=== PATIENT | male | born 1975 | race Caucasian/White ===

== ENCOUNTER 2016-11-08 00:34 | Emergency (ER) | payer OTHER ==
[~2016-11-08] VITALS: Ht 188 cm; Wt 122.5 kg
[~2016-11-08 00:34] MED LIST: BLM PO; IBU800 MG PO; LEVOTHYROXIN0.075 M1 PO; RISPERDAL CONST25 MG IM; RISPERIDONE4 MG PO
--- NOTE | 2016-11-08 01:09 | ED GI/GU/ABDOMINAL COMPLAINT ---
History of Present Illness General Chief Complaint: Nausea, Vomiting, Diarrhea Stated Complaint: +VOM,SLEEPY PER PT Source: patient Exam Limitations: no limitations Vital Signs & Intake/Output Vital Signs & Intake/Output Vital Signs Date Time Temp Pulse Resp B/P Pulse O2 O2 Flow FiO2 Ox Delivery Rate 11/08 0256 97.6 81 20 112/68 96 Room Air 11/08 0134 Room Air 11/08 0106 96.9 103 18 144/89 95 Room Air Allergies Coded Allergies: Penicillins (Intermediate, RASH 11/16/15) Reconcile Medications Atorvastatin Calcium 20 MG TABLET 1 TAB PO DAILY CHOLESTEROL (Reported) Gabapentin 300 MG CAPSULE 1 CAP PO DAILY NERVE PAIN (Reported) Levothyroxine Sodium 100 MCG TABLET 1 TAB PO DAILY HASHIMOTOS (Reported) Lorazepam 0.5 MG TABLET 1 TAB PO BID PRN ANXIETY (Reported) Metformin HCl 1,000 MG TABLET 1 TAB PO QAM PRE-DM (Reported) Ondansetron (Zofran Odt) 4 MG TAB.RAPDIS 1 TAB PO Q6 PRN NAUSEA Risperidone Microspheres (Risperdal Consta) 25 MG/2 ML SYRINGE 25 MG IM Q2W MENTAL HEALTH (Reported) Turmeric Root Extract (Turmeric) (Unknown Strength) CAPSULE 3 CAP PO PRN SUPPLEMENT (Reported) Triage Note: PT TO TRIAGE C/O VOMITING MULTIPLE TIMES X2DAYS. PT STATES HE LAST VOMITED YESTERDAY MORNING. ATE PIZZA AROUND 5:30 LAST NIGHT AND IT HAS STAYED DOWN. PT COMPLAINING OF NAUSEA AND INTERMITTENT R ABD PAIN. PT ALSO C/O DROWSINESS. Triage Nurses Notes Reviewed? yes Onset: Abrupt Duration: hour(s): (MULTIPLE), SINCE 4 PM Timing: multiple episodes today Quality/Severity: moderate Location: right upper quadrant Radiation: no radiation No Modifying Factors: none Associated Symptoms: nausea/vomiting HPI: 41 year-old male presents to the chief complaint of nausea, right upper quadrant pain, feeling dehydrated and sleepy. He states he started vomiting last night around 4 AM. Since then he has vomited multiple times. This evening around 5: 00 he tried eat pizza and Edematous feel nauseous. Denies any bloody emesis. Denies any fever or chills. He had 2 bowel movements today. Denies any recent sick contacts. History of previous alcoholism but has not had a drink in over 60 days. Denies any drug or tobacco use. Past History Travel History Traveled to [place] past 21 day No Medical History Any Pertinent Medical History? see below for history Neurological: NONE, L LEG NERVE DAMAGE EENT: NONE Cardiovascular: NONE Respiratory: NONE Gastrointestinal: NONE Hepatic: NONE Renal: NONE Musculoskeletal: NONE Psychiatric: anxiety, schizophrenia ( Per patient questioning) Endocrine: diabetes, Preston's thyroiditis Surgical History Surgical History: non-contributory Psychosocial History What is your primary language Kittitian Tobacco Use: Never used ETOH Use: denies use Family History Hx Contributory? No Review of Systems Review of Systems Constitutional: Denies: chills, fever. EENTM: Reports: no symptoms. Respiratory: Denies: cough, short of breath. Cardiovascular: Denies: chest pain, palpitations. GI: Reports: abdominal pain, nausea, vomiting. Denies: diarrhea. Genitourinary: Denies: discharge, dysuria. Musculoskeletal: Reports: no symptoms. Skin: Reports: no symptoms. Neurological/Psychological: Reports: no symptoms. Hematologic/Endocrine: Denies: bruising, bleeding, polyuria, polydipsia. Immunologic/Allergic: Denies: splenectomy. All Other Systems: Reviewed and Negative Physical Exam Physical Exam General Appearance: well developed/nourished, alert, awake, anxious, mild distress Head: atraumatic, active bleeding Eyes: Bilateral: normal appearance, PERRL, EOMI. Ears, Nose, Throat, Mouth: hearing grossly normal, moist mucous membrane Neck: normal inspection, supple, full range of motion Respiratory: normal breath sounds, chest non-tender, no respiratory distress Cardiovascular: regular rate/rhythm Peripheral Pulses: 2+ radial (R), 2+ radial (L) Gastrointestinal: normal bowel sounds, soft, tenderness (RUQ), NEGATIVE NASH'S , OBESE Back: normal inspection, normal range of motion Extremities: normal range of motion Neurologic/Psych: no motor/sensory deficits, awake, alert, oriented x 3, normal gait, ANXIOUS Skin: intact, normal color, warm/dry Core Measures ACS in differential dx? No Severe Sepsis Present: No Septic Shock Present: No Progress Differential Diagnosis: biliary colic, cholecystitis, gastritis, hepatitis, hernia, peptic ulcer, PUD/GERD, perforated viscous, SBO Plan of Care: Orders Procedure Date/time Status URINALYSIS 11/09 111 Complete LIPASE 11/09 111 Complete LACTIC ACID 11/09 111 Complete COMPREHENSIVE METABOLIC PANEL 11/09 111 Complete CBC WITHOUT DIFFERENTIAL 11/09 111 Complete Laboratory Tests 11/08/16 0130: Urinalysis MOD H, Urine Color YEL, Urine Clarity HAZY H, Urine pH 8.0, Ur Specific [place] 1.015, Urine Protein 30 H, Urine Ketones NEG, Urine Nitrite NEG, Urine Bilirubin NEG, Urine Urobilinogen 2.0 H, Ur Leukocyte Esterase NEG, Ur Microscopic SEDIMENT EXAMINED, Ur Epithelial Cells FEW, Urine Hemoglobin NEG, Urine Glucose NEG 11/08/16 0121: Anion Gap 9, Estimated GFR > 60, BUN/Creatinine Ratio 17.5, Glucose 164 H, Lactic Acid 0.9, Calcium 9.5, Total Bilirubin 1.3, AST 188 H, ALT 229 H, Alkaline Phosphatase 56, Total Protein 6.8, Albumin 4.1, Globulin 2.7, Albumin/ Globulin Ratio 1.5, Lipase 115, CBC w Diff NO MAN DIFF REQ, RBC 4.89, MCV 81.1, MCH 27.0, RDW 15.4 H, MPV 7.8, Gran % 74.6, Lymphocytes % 20.0 L, Monocytes % 4.0, Eosinophils % 1.1, Basophils % 0.3, Absolute Granulocytes 6.1, Absolute Lymphocytes 1.6, Absolute Monocytes 0.3, Absolute Eosinophils 0.1, Absolute Basophils 0, PUBS MCHC 33.3 3:31 AM Patient resting comfortably. Laboratory results discussed with patient for follow-up. I suspect fatty liver. Zofran sent to [facility] in [place]. (YVETTE ROSS,LIZ) Initial ED EKG: none Departure Departure Time of Disposition: 326 Disposition: HOME OR SELF CARE Condition: Stable Clinical Impression Primary Impression: Nausea alone Secondary Impressions: Elevated liver enzymes Referrals: SKYLER ROSS,PATT Pruitt (PCP/Family) Additional Instructions: Take Zofran as needed for nausea. Your prescription is at [facility] in [place]. Follow up with your doctor in the office regarding your elevated liver function tests. Return as needed. Departure Forms: Customer Survey General Discharge Information Prescriptions: Current Visit Scripts Ondansetron (Zofran Odt) 1 TAB PO Q6 PRN NAUSEA #20 TAB
[2016-11-08 01:27] LABS: ABSOLUTE BASOPHIL COUNT 0 /CUMM (0.0-0.2); ABSOLUTE EOSINOPHIL COUNT 0.1 /CUMM (0.0-0.7); ABSOLUTE GRANULOCYTE CT 6.1 /CUMM (1.4-6.5); ABSOLUTE LYMPH COUNT 1.6 /CUMM (1.2-3.4); ABSOLUTE MONOCYTE COUNT 0.3 /CUMM (0.10-0.60); BASOPHIL % 0.3 % (0.0-2.0); EOSINOPHIL % 1.1 % (0-5); GRANULOCYTE % 74.6 % (42.2-75.2); HEMATOCRIT 39.6 % (42-52); MEAN CORPUSCULAR HGB CONC 33.3 G/DL (33.0-37.0); MEAN CORPUSCULAR VOLUME 81.1 FL (80.0-94.0); MEAN PLATELET VOLUME 7.8 FL (7.4-10.4); PLATELET COUNT 240 /CUMM (130-400); RBC DISTRIBUTION WIDTH 15.4 % (11.5-14.5); RED BLOOD CELL CT 4.89 /CUMM (4.70-6.10); WHITE BLOOD CELL COUNT 8.2 /CUMM (4.8-10.8)
[2016-11-08 02:56] VITALS: BP 112/68
[2016-11-08] MEDS ORDERED: ZOFRAN ODT4 M1 PO (03:28)
[2016-11-08] MEDS ORDERED: LEVOTHYROXINE100 MC1 PO (18:30)
[2016-11-08] MEDS ORDERED: LORAZEPAM0.5 M1 PO (18:31)
[2016-11-08] MEDS ORDERED: METFORMIN HCL1000 M1 PO (18:31)
[2016-11-08] MEDS ORDERED: ATORVASTATIN CA20 M1 PO (18:31)
[2016-11-08] MEDS ORDERED: GABAPENTIN300 M2 PO (18:31)
[2016-11-08] MEDS ORDERED: PROAIR HFA8.5 GM INH (18:32)
[2016-11-08] MEDS ORDERED: RISPERDAL25 MG/2 ML IM (18:35)
[2016-11-08] MEDS ORDERED: TURMERIC500 M1 PO (18:36)
== END 2016-11-08 03:35 ==
LOC: ERH 00:34
PROVIDERS: Emergency Medicine
DX: R11.0 Nausea (principal); R74.8 Abnormal levels of other serum enzymes
CPT/HCPCS: 81001; 96361; 96374; J2405

== ENCOUNTER 2016-11-08 18:07 | Inpatient (IN) | payer OTHER ==
[~2016-11-08] VITALS: Ht 185.4 cm; Wt 144.7 kg
[~2016-11-08 18:07] MED LIST changes: +ZOFRAN ODT4 M1 PO
--- NOTE | 2016-11-08 18:12 | NUR ---
PRESENTS TO ED FOR EVALUATION OF NAUSEA DESPITE TAKING ZOFRAN. HE WAS EVALUATED HERE LAST NIGHT AND TOLD HIS LIVER ENZYMES WERE ELEVATED. HE VOMITED "BLACK STUFF" X 1 THIS AM AT 0515. ALSO REPORTS DECREASE IN APPETTITE.
--- NOTE | 2016-11-08 18:20 | NUR ---
APPRECIATE TRIAGE NOTE. PT AMBULATORY TO ROOM 7. AWAITING PROVIDER EVAL.
[2016-11-08] MEDS ORDERED: LEVOTHYROXINE100 MC1 PO (18:30)
[2016-11-08] MEDS ORDERED: METFORMIN HCL1000 M1 PO (18:31)
[2016-11-08] MEDS ORDERED: ATORVASTATIN CA20 M1 PO (18:31)
[2016-11-08] MEDS ORDERED: LORAZEPAM0.5 M1 PO (18:31)
[2016-11-08] MEDS ORDERED: GABAPENTIN300 M2 PO (18:31)
[2016-11-08] MEDS ORDERED: PROAIR HFA8.5 GM INH (18:32)
[2016-11-08] MEDS ORDERED: RISPERDAL25 MG/2 ML IM (18:35)
[2016-11-08] MEDS ORDERED: TURMERIC500 M1 PO (18:36)
--- NOTE | 2016-11-08 18:42 | ED GI/GU/ABDOMINAL COMPLAINT ---
History of Present Illness General Chief Complaint: General Adult Stated Complaint: PT HAS HIGH LIVER LEVEL & IS VOMITING BLACK STUFF Source: patient, old records Exam Limitations: no limitations Vital Signs & Intake/Output Vital Signs & Intake/Output Vital Signs Date Time Temp Pulse Resp B/P Pulse O2 O2 Flow FiO2 Ox Delivery Rate 11/08 2201 99.4 95 18 144/71 97 Room Air 11/08 2002 97.8 87 18 133/72 95 Room Air Room Air 11/09 1811 98.0 97 20 118/79 96 Room Air Allergies Coded Allergies: Penicillins (Intermediate, RASH 11/16/15) Reconcile Medications Atorvastatin Calcium 20 MG TABLET 1 TAB PO DAILY CHOLESTEROL (Reported) Gabapentin 300 MG CAPSULE 1 CAP PO DAILY NERVE PAIN (Reported) Levothyroxine Sodium 100 MCG TABLET 1 TAB PO DAILY HASHIMOTOS (Reported) Lorazepam 0.5 MG TABLET 1 TAB PO BID PRN ANXIETY (Reported) Metformin HCl 1,000 MG TABLET 1 TAB PO QAM PRE-DM (Reported) Ondansetron (Zofran Odt) 4 MG TAB.RAPDIS 1 TAB PO Q6 PRN NAUSEA Risperidone Microspheres (Risperdal Consta) 25 MG/2 ML SYRINGE 25 MG IM Q2W MENTAL HEALTH (Reported) Turmeric Root Extract (Turmeric) (Unknown Strength) CAPSULE 3 CAP PO PRN SUPPLEMENT (Reported) Triage Note: PRESENTS TO ED FOR EVALUATION OF NAUSEA DESPITE TAKING ZOFRAN. HE WAS EVALUATED HERE LAST NIGHT AND TOLSD HIS LIVER ENZYMES WERE ELEVATED. HE VOMITED "BLACK STUFF" X 1. ALSO REPORTS DECREASE IN APPETTITE. Triage Nurses Notes Reviewed? yes HPI: Patient presents for evaluation of vomiting but looked like coffee grounds today. Patient states he was seen last night in the emergency department and told he had increased liver tests. He has been vomiting despite nausea medications prescribed last night. He denies melena but states he has had relatively frequent nose bleeding episodes, the last being earlier today. He has been suffering and epigastric abdominal pain intermittently since last night. He denies any drug or alcohol use. His last alcohol was about 60 days ago. (BOOKER ROSS,BRADLEY Rodriguez) Past History Travel History Traveled to [place] past 21 day No Medical History Any Pertinent Medical History? see below for history Neurological: NONE, L LEG NERVE DAMAGE EENT: NONE Cardiovascular: NONE Respiratory: NONE Gastrointestinal: NONE Hepatic: NONE Renal: NONE Musculoskeletal: NONE Psychiatric: anxiety, schizophrenia ( Per patient questioning) Endocrine: diabetes, Preston's thyroiditis Surgical History Surgical History: non-contributory Psychosocial History What is your primary language Taiwanese Family History Hx Contributory? No (BOOKER ROSS,BRADLEY Rodriguez) Review of Systems Review of Systems Constitutional: Reports: no symptoms. EENTM: Reports: no symptoms. Respiratory: Reports: no symptoms. Cardiovascular: Reports: no symptoms. GI: Reports: see HPI. Genitourinary: Reports: no symptoms. Musculoskeletal: Reports: no symptoms. Skin: Reports: no symptoms. Neurological/Psychological: Reports: no symptoms. Hematologic/Endocrine: Reports: no symptoms. Immunologic/Allergic: Reports: no symptoms. All Other Systems: Reviewed and Negative (BOOKER ROSS,BRADLEY Rodriguez) Physical Exam Physical Exam Gastrointestinal: SEE BELOW Comments: Gen.: Well-nourished, well-developed, no acute respiratory distress. Overweight. Head: Normocephalic, atraumatic. Eyes: Question of a slight icterus Ears: Normal inspection bilaterally Nose: Normal inspection Throat/mouth : Moist mucosa Neck: Supple, full range of motion, no goiter Heart: Regular rate and rhythm, no murmurs rubs or gallops Lungs: Clear to auscultation bilaterally with normal air entry Chest: Nontender Back: Normal range of motion Abdomen: Soft, right upper quadrant abdominal tenderness without rebound or guarding, nondistended, normal bowel sounds Extremities: Normal range of motion grossly, equal radial pulses, no cyanosis clubbing or edema Neurologic: Cranial nerves grossly intact, speech is clear Skin: warm and dry Psychiatric: Calm, cooperative, no apparent delusions or hallucinations Core Measures ACS in differential dx? No Severe Sepsis Present: No Septic Shock Present: No (BOOKER ROSS,BRADLEY Rodriguez) Progress Differential Diagnosis: HEPATITIS, LIVER FAILURE Plan of Care: Orders Procedure Date/time Status Nothing by Mouth 11/09 B Active Admit to inpatient 11/08 225 Active Vital Signs 11/08 225 Active Code Status 11/08 225 Active XRY-PORTABLE CHEST XRAY 11/08 225 Active Add-on Test (ER Only) 11/09 2235 Active Add-on Test (ER Only) 11/08 2028 Active TOTAL IRON BINDING CAPACITY 11/08 1858 Complete FERRITIN 11/08 1858 Complete SERUM IRON 11/08 1858 Complete MONOSPOT 11/08 1841 Complete HEPATITIS PANEL 11/08 184 Active ETHANOL 11/08 184 Active URINALYSIS 11/08 183 Complete PROTHROMBIN TIME 11/08 1837 Complete LIPASE 11/08 1837 Complete COMPREHENSIVE METABOLIC PANEL 11/08 1837 Complete CBC WITHOUT DIFFERENTIAL 11/08 1837 Complete Current Medications Sig/Yesica Start time Last Medication Dose Stop Time Status Admin Ondansetron HCl 4 MG ONCE ONE 11/08 2299 UNVr (Zofran) 11/08 2300 Pantoprazole Sodium 40 MG ONCE ONE 11/08 2299 UNVr (Protonix) 11/08 230 Sodium Chloride 1,000 ML BOLUS ONE 11/08 2299 UNVr (Normal Saline 0.9%) 11/09 005 Sodium Chloride 1,000 ML BOLUS ONE 11/08 2299 UNVr (Normal Saline 0.9%) 11/08 235 Laboratory Tests 11/08/16 1904: Urine Color YEL, Urine Clarity CLEAR, Urine pH 6.0, Ur Specific [place] >= 1.030 , Urine Protein 30 H, Urine Ketones 40 H, Urine Nitrite NEG, Urine Bilirubin NEG@ICTO, Urine Urobilinogen 1.0, Ur Leukocyte Esterase NEG, Ur Microscopic SEDIMENT EXAMINED, Urine WBC RARE, Ur Epithelial Cells FEW, Urine Bacteria FEW H, Urine Mucus MOD H, Urine Hemoglobin NEG, Urine Glucose NEG 11/08/161857: Infectious [place] Titer NEGATIVE 11/08/161857: Anion Gap 12, Estimated GFR > 60, BUN/Creatinine Ratio 15.7, Glucose 93, Calcium 9.3, Iron 68, TIBC 455, Ferritin 140.0, Total Bilirubin 1.7 H, AST 773 H, ALT 838 H, Alkaline Phosphatase 63, Total Protein 7.1, Albumin 4.2, Globulin 2.9, Albumin/Globulin Ratio 1.4, Lipase 75, PT 17.3 H, INR 1.66 H, CBC w Diff NO MAN DIFF REQ, RBC 5.00, MCV 80.9, MCH 26.1 L, RDW 15.5 H, MPV 7.3 L, Gran % 82.0 H, Lymphocytes % 12.2 L, Monocytes % 4.9, Eosinophils % 0.7, Basophils % 0.2, Absolute Granulocytes 6.5, Absolute Lymphocytes 1.0 L, Absolute Monocytes 0.4, Absolute Eosinophils 0.1, Absolute Basophils 0, PUBS MCHC 32.3 L, Hepatitis A IgM Ab Pending, Hep Bs Antigen Pending, Hep B Core IgM Ab Conf Pending, Hepatitis C Antibody Pending, Serum Alcohol < 10.0 Initial ED EKG: none Comments: 11/08/2016 7:10:32 PM patient signed out to Dr. Hicks at shift pack [facility]. (BOOKER ROSS,BRADLEY Rodriguez) Departure Departure Disposition: STILL A PATIENT Condition: Stable Clinical Impression Primary Impression: Transaminitis Referrals: SKYLER ROSS,PATT Pruitt (PCP/Family) Departure Forms: Customer Survey General Discharge Information (BOOKER ROSS,BRADLEY Rodriguez) Departure Comments 11/08/16 8:31 PM The patient was signed out to me by Dr. Schaefer at 7 PM. Admission Note Spoke With: MIRA VILLALOBOS MD Documentation of Exam: Documentation of any treatments & extenuating circumstances including Concerns Regarding Discharge (functional status, medication knowledge or non-compliance, living conditions, etc.) that warrant an admission rather than observation: [The patient needs admission for IV fluids, IV Protonix, GI consultation. I spoke with Dr. Hammond who is aware of the patient. Patient did have a second episode of scant hemoptysis in the ED, he has ongoing nausea and vomiting; He was recently discharged from the emergency department and failed outpatient care.] CT RESULT PATIENT: BETSY LANDERS PRESENT AGE: 41 PATIENT ACCOUNT NO: [id number] : 76 LOCATION: [facility] ORDERING PHYSICIAN: BRADLEY SCHAEFER MD SERVICE DATE: 11/08/16 EXAM TYPE: CAT - CT ABD & PELVIS W/ & W/O IV CO EXAMINATION: CT ABDOMEN AND PELVIS WITHOUT AND WITH CONTRAST CLINICAL INFORMATION: Hepatitis. Concern for hepatic mass. COMPARISON: 07/05/2014. TECHNIQUE: Contiguous axial thin section helical images of the abdomen and pelvis were performed without oral contrast and prior to and following the administration of 95 mL of intravenous Optiray 320. The data set was reformatted in the coronal and sagittal planes and reviewed on an independent workstation. DLP: 2704 mGy-cm. FINDINGS: The visualized lung bases are clear. There is a small pericardial effusion. The visualized portions of the heart are otherwise unremarkable. The liver is of normal size and diffuse decreased attenuation without focal lesions nor intrahepatic biliary ductal dilation. A normal gallbladder is identified. There is no wall thickening or discernible pericholecystic fluid. The spleen, pancreas, adrenal glands are unremarkable. Both kidneys are of normal size and attenuation without hydronephrosis or nephrolithiasis. Following the administration of IV contrast, prompt symmetric nephrograms are displayed. There is no abdominal free fluid. There is neither mesenteric nor retroperitoneal lymphadenopathy. Normal unopacified loops of small and large bowel are identified. A normal appendix is identified. There is no pelvic free fluid. The urinary bladder is unremarkable. There is neither pelvic nor inguinal lymphadenopathy. Bone windows: Neither sclerotic nor lytic bone lesions are identified. IMPRESSION: No evidence for acute abdominal or pelvic inflammatory or infectious processes. Hepatic steatosis. No hepatic mass lesions. Small pericardial effusion. DICTATED BY: ALETHA PLATA MD DATE/TIME DICTATED:11/08/161939 STATE'S ATTORNEY:MARCIA DATE/TIME TRANSCRIBED:11/08/161939 CONFIDENTIAL, DO NOT COPY WITHOUT APPROPRIATE AUTHORIZATION. <Electronically signed in Other Vendor System> SIGNED BY: ALETHA PLATA MD 11/08/161948 (BRADLEY HICKS DO
--- NOTE | 2016-11-08 18:49 | NUR ---
DR. BOOKER SHARIF'D PT. BLOOD WORK IN PROGRESS AT THIS TIME.
[2016-11-08 19:05] LABS: ABSOLUTE BASOPHIL COUNT 0 /CUMM (0.0-0.2); ABSOLUTE EOSINOPHIL COUNT 0.1 /CUMM (0.0-0.7); ABSOLUTE GRANULOCYTE CT 6.5 /CUMM (1.4-6.5); ABSOLUTE MONOCYTE COUNT 0.4 /CUMM (0.10-0.60); BASOPHIL % 0.2 % (0.0-2.0); EOSINOPHIL % 0.7 % (0-5); HEMATOCRIT 40.4 % (42-52); MEAN CORPUSCULAR HGB 26.1 PG (27.0-31.0); MEAN CORPUSCULAR HGB CONC 32.3 G/DL (33.0-37.0); MEAN CORPUSCULAR VOLUME 80.9 FL (80.0-94.0); MEAN PLATELET VOLUME 7.3 FL (7.4-10.4); PLATELET COUNT 220 /CUMM (130-400); RBC DISTRIBUTION WIDTH 15.5 % (11.5-14.5); WHITE BLOOD CELL COUNT 7.9 /CUMM (4.8-10.8)
--- NOTE | 2016-11-08 19:13 | NUR ---
PT TO CAT SCAN AT THIS TIME.
[2016-11-08 19:17] LABS: PT 17.3 SEC (9.4-12.5)
--- NOTE | 2016-11-08 19:28 | NUR ---
PT RETURN FROM CAT SCAN VIA STRETCHER.
--- NOTE | 2016-11-08 19:49 | CT SCAN REPORT ---
EXAMINATION: CT ABDOMEN AND PELVIS WITHOUT AND WITH CONTRAST CLINICAL INFORMATION: Hepatitis. Concern for hepatic mass. COMPARISON: 07/05/2014. TECHNIQUE: Contiguous axial thin section helical images of the abdomen and pelvis were performed without oral contrast and prior to and following the administration of 95 mL of intravenous Optiray 320. The data set was reformatted in the coronal and sagittal planes and reviewed on an independent workstation. DLP: 2704 mGy-cm. FINDINGS: The visualized lung bases are clear. There is a small pericardial effusion. The visualized portions of the heart are otherwise unremarkable. The liver is of normal size and diffuse decreased attenuation without focal lesions nor intrahepatic biliary ductal dilation. A normal gallbladder is identified. There is no wall thickening or discernible pericholecystic fluid. The spleen, pancreas, adrenal glands are unremarkable. Both kidneys are of normal size and attenuation without hydronephrosis or nephrolithiasis. Following the administration of IV contrast, prompt symmetric nephrograms are displayed. There is no abdominal free fluid. There is neither mesenteric nor retroperitoneal lymphadenopathy. Normal unopacified loops of small and large bowel are identified. A normal appendix is identified. There is no pelvic free fluid. The urinary bladder is unremarkable. There is neither pelvic nor inguinal lymphadenopathy. Bone windows: Neither sclerotic nor lytic bone lesions are identified. IMPRESSION: No evidence for acute abdominal or pelvic inflammatory or infectious processes. Hepatic steatosis. No hepatic mass lesions. Small pericardial effusion.
--- NOTE | 2016-11-08 22:06 | NUR ---
DR. HICKS TO BEDSIDE TO DISCUSS RESULTS AND POC.
--- NOTE | 2016-11-08 23:13 | RADIOLOGY REPORT ---
EXAMINATION: XR PORTABLE CHEST CLINICAL INFORMATION: Hemoptysis COMPARISON: 12/29/2014 TECHNIQUE: Portable portable AP chest 80 degrees view of the chest was obtained. FINDINGS: The lung volumes are slightly low. Heart size is stable. Mediastinal contours are normal. Lungs are clear without consolidation, effusion or pneumothorax. Visualized osseous structures appear intact. IMPRESSION: No acute process
--- NOTE | 2016-11-08 23:19 | NUR ---
HOUSE STAFF AT BEDSIDE
--- NOTE | 2016-11-08 23:26 | NUR ---
DR. HARMON TO BEDSIDE FOR EVAL.
--- NOTE | 2016-11-08 23:50 | NUR ---
PT MEDICATED WITH PROTONIX AND ZOFRAN PER EMAR.
--- NOTE | 2016-11-09 00:07 | NUR ---
PT'S RM ASSIGNMENT 220 BED 2
--- NOTE | 2016-11-09 00:20 | History & Physical ---
JOSE ROSS,JAGJIT 11/09/16 0020: General Information and HPI MD Statement: I have seen and personally examined MARTY LANDERS and documented this H&P. The patient is a 41 year old M who presented with a patient stated chief complaint of [HEMETESIS AND ABDOMINAL PAIN]. Source of Information: patient, old records Exam Limitations: no limitations History of Present Illness: This is a 41 yo male with PMH of anxiety, schizophrenia, Hashimotos, pre- diabetes, who comes in with CC of abdominal pain and "vomiting black coffee ground stuff." Pt was seen in [place] ED for similar for similar complaints including abdominal pain, vomiting (no hemetemesis) and some self reported lethargy. He was informed that his liver enzymes were elevated, given zofran and asked to follow up with PCP. Despite medication pt continued to have vomiting 2-3x since this AM, increasing abdominal prain in RUQ, and at 5:15 pm, one episode of coffee ground emesis. Given worsensing of symptoms he came back to ED. He states that he his symptoms of abdominal pain (mostly epigastric and RUQ) and vomiting started around 4am on Thursday. ; . Denies any other symptom including CP, SOB, BRBPR, Melena, hematochezia, headache, recent travel, exotic food ingestion or sick contacts. He had an episode of bronchitis about 2 weeks ago treated with Z-curtis and inhalers. URI symptoms have since resolved. He does endorse slight epistaxis (spotting) but he states that is normal for him 2/2 winter dryness. No history of gall stones or ulcers. Pt has pmh significant for hashimotos, pre-diabetes, elevated LFT, arthritis, schizophrenia and pertinent medications include Risperdal (which is an old med with no change in dosing) and Statin, (which was started in the past month). He takes herbal supplements including turmeric, milk thistle, and dandelion tea. Denies any recent use of pain medication including tylenol. Family hx significant for hemachromotosis in a cousin. Mother with breast cancer and father with lung ca 2/2 smoking. No surgical hx. Last ETOH was 60 days ago; prior to which pt drank 2 x 12 pack a month. Endorses heavier drinking in youth. Denies any smoking or drug use. Not sexually active in several years. Only hospitalization is 2/2 schizophrenia. No history of lithium use. Upon review of old records pt has hx of elevated LFT, including in 2014 and 2013 , lab work from 2011 w/nml LFT. He also had RUQ U/S without any abnormal findings. Hep panel in Aug 2016 WNL. Allergies/Medications Allergies: Coded Allergies: Penicillins (Intermediate, RASH 11/16/15) Home Med list Atorvastatin Calcium 20 MG TABLET 1 TAB PO DAILY CHOLESTEROL (Reported) Gabapentin 300 MG CAPSULE 1 CAP PO DAILY NERVE PAIN (Reported) Levothyroxine Sodium 100 MCG TABLET 1 TAB PO DAILY HASHIMOTOS (Reported) Lorazepam 0.5 MG TABLET 1 TAB PO BID PRN ANXIETY (Reported) Metformin HCl 1,000 MG TABLET 1 TAB PO QAM PRE-DM (Reported) Ondansetron (Zofran Odt) 4 MG TAB.RAPDIS 1 TAB PO Q6 PRN NAUSEA Risperidone Microspheres (Risperdal Consta) 25 MG/2 ML SYRINGE 25 MG IM Q2W MENTAL HEALTH (Reported) Turmeric Root Extract (Turmeric) (Unknown Strength) CAPSULE 3 CAP PO PRN SUPPLEMENT (Reported) Compliance With Home Meds: GOOD Past History Travel History Traveled to [place] past 21 day No Medical History Neurological: NONE, L LEG NERVE DAMAGE EENT: NONE Cardiovascular: NONE Respiratory: NONE Gastrointestinal: NONE Hepatic: NONE Renal: NONE Musculoskeletal: NONE Psychiatric: anxiety, schizophrenia ( Per patient questioning) Endocrine: diabetes, Preston's thyroiditis Surgical History Surgical History: non-contributory Past Family/Social History Family History Relations & Conditions if any Relation not specified for: FH: hemochromatosis Psychosocial History Where do you live? Home Primary Language: Salvadorean Smoking Status: Never Smoked ETOH Use: previous use Illicit Drug Use: denies illicit drug use Living Will? no Functional Ability ADLs Independent: dressing, eating, toileting, bathing. Ambulation: independent IADLs Independent: shopping, housework, finances, food prep, telephone, transportation , medication admin. Sexual History Sexually Active No Review of Systems Review of Systems Constitutional: Reports: malaise. Denies: chills, diaphoresis, fever. EENTM: Reports: icterus, epistaxis. Denies: blurred vision, double vision, visual changes, eye pain, nasal congestion, nasal pain, throat pain. Cardiovascular: Denies: chest pain, edema, palpitations, peripheral edema, syncope. Respiratory: Denies: cough, hemoptysis, orthopnea, short of breath, sputum production, stridor, wheezing. GI: Reports: abdominal pain, melena, vomiting. Denies: constipation, diarrhea, bloody stool, changes in stool. Genitourinary: Reports: no symptoms. Musculoskeletal: Reports: back pain. Skin: Denies: change in skin color, change in hair/nails, erythema, jaundice. Exam & Diagnostic Data Last 24 Hrs of Vital Signs/I&O Vital Signs Date Time Temp Pulse Resp B/P Pulse O2 O2 Flow FiO2 Ox Delivery Rate 11/08 2201 99.4 95 18 144/71 97 Room Air 11/08 2002 97.8 87 18 133/72 95 Room Air Room Air 11/08 181 98.0 97 20 118/79 96 Room Air Intake & Output 11/09 0800 11/09 0000 11/08 1600 Intake Total Output Total Balance Patient 145.15 kg Weight Physical Exam General Appearance Alert, Oriented X3, Cooperative, No Acute Distress Skin No Rashes, No Breakdown, No Significant Lesion HEENT Atraumatic, PERRLA, EOMI, Mucous Membr. moist/pink, mild scleral icterus present Neck Supple Cardiovascular Regular Rate, Normal S1, Normal S2, No Murmurs Lungs Clear to Auscultation, Normal Air Movement Abdomen pt has tenderness to palpation at RUQ. BS+ X4. + [place]. Neurological Normal Speech, Sensation Intact, Cranial Nerves 3-12 NL Extremities No Clubbing, No Cyanosis, No Edema, Normal Pulses, No Tenderness/ Swelling Last 24 Hrs of Labs/Michael: Laboratory Tests 11/08/16 1904: Urine Color YEL, Urine Clarity CLEAR, Urine pH 6.0, Ur Specific [place] >= 1.030 , Urine Protein 30 H, Urine Ketones 40 H, Urine Nitrite NEG, Urine Bilirubin NEG@ICTO, Urine Urobilinogen 1.0, Ur Leukocyte Esterase NEG, Ur Microscopic SEDIMENT EXAMINED, Urine WBC RARE, Ur Epithelial Cells FEW, Urine Bacteria FEW H, Urine Mucus MOD H, Urine Hemoglobin NEG, Urine Glucose NEG 11/08/161857: Infectious [place] Titer NEGATIVE 11/08/161857: Hepatitis A IgM Ab Pending, Hep Bs Antigen Pending, Hep B Core IgM Ab Conf Pending, Hepatitis C Antibody Pending, Serum Alcohol < 10.0 11/08/16 1858: Anion Gap 12, Estimated GFR > 60, BUN/Creatinine Ratio 15.7, Glucose 93, Calcium 9.3, Iron 68, TIBC 455, Ferritin 140.0, Total Bilirubin 1.7 H, AST 773 H, ALT 838 H, Alkaline Phosphatase 63, Total Protein 7.1, Albumin 4.2, Globulin 2.9, Albumin/Globulin Ratio 1.4, Lipase 75, PT 17.3 H, INR 1.66 H, CBC w Diff NO MAN DIFF REQ, RBC 5.00, MCV 80.9, MCH 26.1 L, RDW 15.5 H, MPV 7.3 L, Gran % 82.0 H, Lymphocytes % 12.2 L, Monocytes % 4.9, Eosinophils % 0.7, Basophils % 0.2, Absolute Granulocytes 6.5, Absolute Lymphocytes 1.0 L, Absolute Monocytes 0.4, Absolute Eosinophils 0.1, Absolute Basophils 0, PUBS MCHC 32.3 L, HIV 1&2 Ab Western Blot Pending, Acetaminophen < 10.0 L Assessment/Plan Assessment: This is a 41 yo male with PMH of schizophrenia, pre DM, hashimotos, with previous known LFT abnormalities, on risperdal and statin with PFH of hemachromatosis who presents with CC of coffee ground emesis and abdominal pain. He was in ED yesterday and noted to have AST/ALT almost two hundred but today at 773/838 respectively. Workup shows: Vitals: 99.4, 95, 18, 144/71, 97. UA showed: 14 ounce, protein, negative leukocyte esterase, negative nitrite, few bacteria, moderate mucus. CBC showed white count 7.9, hemoglobin 13.1, hematocrit 40.4, platelet 220. INR 1.66. Negative lipase. Creatinine 0.7. T bili 1.7, AST 773, ALT 838, negative alkaline phosphatase. Negative alcohol level. Negative Monospot. CT shows hepatic steatosis and small pericardial effusion. PLAN 1. Acute Liver Failure: Patient has transaminitis with AST 773 and ALT 838. INR 1.66 and T. bili 1.7. No alkaline phosphatase elevation. Negative alcohol level. No Tylenol ingestion. Negative Monospot. Pt self reports a sense of "fogginess" but is AOx3, no asterixis, Ammonia WNL. Pt has fam hx of hemachromatosis and he does have hx of joint pain, pre- diabetes, and an increase in ferritin from 29.6 in 2014--> 140 in 2017. Other differentials include Risperdal which causes metabolic syndrome-->fatty liver but it can also independently cause elevation of enzymes in a hepatocellular pattern, but an acute increase in LFT over 15 hrs when pt has been on this med for years makes it seem less likely the culprit of the acute elevation. Pt has hx of etoh but denies any ingestion the past 60 days. Statin is a new medication over the past 45 days, which makes it a possibility. The lack of alkaline phosphatase rules our biliary etiology. Other consideration include autoimmune hepatitis, [place], ischemic hepatitis, nonalcoholic fatty liver disease, and viral etiology given recent hx of bronchitis. MELD score 16 * Check right upper quadrant ultrasound * Check Hepatitis panel * Check HIV panel * Check Ammonia level * Monitor ferritin * Fractionate bilirubin * Check anti-smooth muscle antibody in AM * Check LDH * Place GI consult * start NAC * Consider Vitamin K in AM 2. Hematemesis: Currently unknown etiology. Patient does have a history of EtOH ingestion. Unknown if he has history of varices or ulcers. * IV PPI * Normal saline 3. Elevated INR: Pt comes in with INR 1.66, not on anticoagulants. Likely associated with his acute liver disease. * Monitor INR 4. Pre-diabetes: pt takes 1000mg Metformin daily at home for prediabetes. * Hold metformin * Fingerstick * A1c 5. Anemia: Patient has hemoglobin 13.1 and hematocrit 40.4. Likely secondary to hematemesis and hemolysis. * Guaiac all stool * Monitor CBC * check hemolysis labs. FULL CODE NPO MECHANICAL DVT PPX As Ranked By This Provider Problem List: 1. Transaminitis 2. Hypothyroid Core Measures/Miscellaneous Acute Coronary Syndrome ACS Diagnosis: No Cerebrovascular Accident CVA/TIA Diagnosis: No Congestive Heart Failure CHF Diagnosis: No Venous Thromboembolism VTE Risk Factors: Acute medical illness, Age > 40 [facility] prophylaxis d/t: No contraindications No VTE Pharm Prophylaxis d/t: No contraindications VTE Diagnosis: No VTE Type: NONE VTE Confirmed by (Test): NONE Severe Sepsis Severe Sepsis Present: No Septic Shock Septic Shock Present: No Miscellaneous Documentation Attending Case Discussed With: GRISELDA ROSS,MIRA Primary Care Physician: PATT HOLLAND MD Patient sees these Specialists unknown Level of Patient Care: General Medicine DAGOBERTO ROSS,[facility] 11/09/16 0322: Resident Review Statement Resident Statement: examined this patient, discussed with accounting intern, agreed with accounting intern, discussed with family, reviewed EMR data (avail), discussed with nursing , discussed with case mgmt, reviewed images, amended to note Other Findings: Marty is a 41-year-old man medical history of prediabetes Preston's thyroiditis and resultant hypothyroidism anxiety and schizophrenia, history of transaminitis who presents with 2 days of nausea and vomiting, this afternoon he had coffee- ground emesis. Additionally, he has a long-standing history of arthritic pain especially in the knees. He also endorses a family history of hemochromatosis. He takes multiple herbal medications including turmeric and milk thistle. He also noticed some yellow discoloration of his eyes in recent days. He also notes a "mental fog". He has had outpatient workup of his transaminitis. Ultrasound of the right upper quadrant performed in 2010 and 2013 did not show any hepatic abnormalities. He is their had a liver biopsy. Denies being sexually active or promiscuous sexual habits. He did recently have viral URI/ bronchitis for which he was prescribed a Z-Curtis. However CAT scan on this admission shows hepatic steatosis. He does not note any medication changes other than the addition of atorvastatin in late September. Vital signs are stable. Labs are notable for a normocytic anemia elevated total bilirubin of 1.7 AST of 773, ALT 838. Normal alkaline phosphatase. INR is 1.66 Tylenol level is negative. Urinalysis positive for ketones and protein. CT abdomen pelvis did not show any signs of infection but did demonstrate hepatic steatosis. This patient's acute liver injury may have multiple etiologies including medications/herbal induced, or from his Risperdal or possibly statin induced. Additionally hemochromatosis may be a possibility in this patient. He is the appropriate age as well as the constellation of "prediabetes", arthralgias, transaminitis and right upper quadrant discomfort. Although his ferritin is normal, upon trending, it has more than tripled when compared to levels in 2014. Ceruloplasmin level was also checked in 2014 which was normal at the time. Given his anemia, neurospychiatric disorder he scores >2 points on diagnostic criteria, and further investigation is recommended. He has never had a liver bx. Differential is broad: DILI, Viral Transaminitis, VILLANUEVA, Autoimmune hepatitis, Hemachromatosis, Anthony's disease. - Problems - UGIB Transaminits Hyperbilirubinemia Confusion Schizophrenia Impaired glucose tolerance Preston's thyroiditis - Plan - Keep npo Type x Screen Supportive Tx; Zofran for nausea RUQ US in am IVFs Protonix iv Check EKG Ammonia level Serum and Urine Copper Fractionated bili Antismooth muscle antibodies CMV serology Await EBV serology DC Risperdal, Statin and metformin Gi consultation Anticipate liver bx Consider hematology evaluation regarding hemachromotosis Accuchecks tidac DVT ppx Reji VILLALOBOS MD, [facility] 11/09/16 0504: Attending MD Review Statement Attending Statement Attending MD Statement: examined this patient, discuss w/resident/PA/ORTHOPHOTOGRAPHY TECHNICIAN, agreed w/resident/PA/ORTHOPHOTOGRAPHY TECHNICIAN Attending Assessment/Plan: 41 yo morbidly obese M with h/o Preston's thyroiditis w/ hypothyroidism, schizophrenia, arthritis, prediabetes, transaminitis that has been worked up in the past and attributed to ongoing Risperidal use, presents with RUQ pain and coffee-ground emesis. He was seen in the ER earlier last night and was sent home on zofran for nausea/vomiting. He did notice some bright red blood as well. No alcohol use for past 60 days, prior to that he was consuming 2 x 12 packs a month. Recently started on Atorvastatin (Oct 07), and also treated for a URI with Zpak around the same time. He consumes many herbal medications (Turmeric, milk thistle, dandelion tea). Denies use to tylenol. He is not sexually active for 4-5 yrs now. Family h/o hemochromatosis in a cousin. Outpatient workup for transaminitis (LFTs trending up since 2013) serum copper and ceruloplasmin levels normal, Abd ultrasound showed normal liver architecture , and gallbladder polyps. VSS. Exam: AAO, noted mild scleral icterus, no pallor, no flapping tremors, no signs of liver failure. Abd: RUQ tenderness, positive martinez's sign, no guarding or rigidity. Labs: H/H 13.1/40.4, INR 1.66, ferritin 140 (37 in 2014), T. Bili 1.7, AST 773, ALT 838, Alk phos 63. Tylenol < 10, alcohol < 10. UA clear. Monospot negative. CT abd/pelvis: hepatic steatosis, no hepatic mass lesions. CXR neg. 1. Acute liver injury/ transaminitis with evidence of impaired synthetic function (elevated INR), but no evidence of ongoing hepatic encephalopathy ( occasionally patient reports 'mental fog') likely viral or drug induced or underlying autoimmune disorder. GM admit, NPO, IV fluids, no evidence of sepsis or hypotension, discontinue statin, risperidal and all herbal medications. Fractionate the total bilirubin. Obtain HIV, hepatitis panel. Patient denies tylenol or recent alcohol use ?VILLANUEVA. Will obtain RUQ ultrasound in AM to better assess gall bladder and liver. Check urine toxicology, TSH, free T4, ammonia, phosphorus, magnesium LDH, retic count and haptoglobin. Other differentials include autoimmune hepatitis, Anthony's disease (ratio of AST: ALT > 2.0 which is not the case, no e/o renal failure, will check uric acid levels and consider Coomb's test), and hemachromatosis (given family history and gradually uptrending ferritin). GI consult requested. Check IMELDA, anti-smooth muscle antibody, CMV and EBV serology. Patient will eventually need liver biopsy. Outpatient hematology eval. 2. Possible upper GI bleed. No active bleeding. NPO, IV PPI, anti-emetics, CBC BID, keep Hb > 7.0, GI consult. If persistent drop in H and H, may consider EGD as inpatient. DVT ppx Alps. Full code. Around 5.30 AM, repeat labs showed worsening liver functions with elevated LDH, discussed with Dr. Hammond, initiating NAC even though tylenol levels were < 10.
--- NOTE | 2016-11-09 00:37 | NUR ---
ATTEMPT TO CALL REPORT TO 2NA. FLOOR UNAWARE OF ADMISSION. AWAITING CALL BACK.
--- NOTE | 2016-11-09 00:49 | Admission Certification ---
Admission Certification Certification Statement - As attending physician, I certify that at the time of - admission, based on clinical presentation, severity of - symptoms, need for further diagnostic testing and - therapeutic interventions, and risk of adverse outcomes - without in-hospital treatment, in my clinical assessment, - this patient requires an acute hospital stay for a minimum - of two nights or longer. I have also considered psychsocial - factors such as support system, advanced age, financial - issues, cognitive issues, and failed out-patient treatments, - past re-admission history, safety of patient, and lack of - compliance as applicable. Specific rationale supporting this admission is: Transaminitis of unclear etiology with possible upper GI bleed.
--- NOTE | 2016-11-09 00:54 | NUR ---
REPORT GIVEN TO [facility] DAY 2NA
[2016-11-09 03:37] LABS: ABSOLUTE BASOPHIL COUNT 0 /CUMM (0.0-0.2); ABSOLUTE EOSINOPHIL COUNT 0.1 /CUMM (0.0-0.7); ABSOLUTE GRANULOCYTE CT 4.9 /CUMM (1.4-6.5); ABSOLUTE LYMPH COUNT 1.3 /CUMM (1.2-3.4); ABSOLUTE MONOCYTE COUNT 0.5 /CUMM (0.10-0.60); BASOPHIL % 0.1 % (0.0-2.0); GRANULOCYTE % 72.3 % (42.2-75.2); MEAN CORPUSCULAR HGB 26.5 PG (27.0-31.0); MEAN CORPUSCULAR HGB CONC 32.5 G/DL (33.0-37.0); MEAN CORPUSCULAR VOLUME 81.6 FL (80.0-94.0); MEAN PLATELET VOLUME 7.7 FL (7.4-10.4); PLATELET COUNT 200 /CUMM (130-400); RBC DISTRIBUTION WIDTH 15.6 % (11.5-14.5); WHITE BLOOD CELL COUNT 6.7 /CUMM (4.8-10.8)
[2016-11-09 03:38] LABS: HEMATOCRIT 35.1 % (42-52)
[2016-11-09 03:39] VITALS: BP 130/70
[2016-11-09 03:44] LABS: PT 17.6 SEC (9.4-12.5)
--- NOTE | 2016-11-09 05:44 | Event Note ---
Event Note Event Note: Hb now 11, worsening LFTs, LDH 2300, and INR 1.68 suggestive of hemolysis and worsening hepatic synthetic function. D/w Dr. Connor Hammond (Gi). Starting 21 hour infusion protocal of N-Acetylcysteine. He will evaluate patient soon.
[2016-11-09 07:20] VITALS: BP 132/70
--- NOTE | 2016-11-09 08:05 | NUR ---
PT VOMITED YELLOW, PUS LIKE EMESIS WITH SMALL PINK PATCHES. ADMINISTERED ZOFRAN. WILL CONTINUE TO MONITOR.
--- NOTE | 2016-11-09 08:25 | NUR ---
0105 ADMITTED FROM ER VIA W/C TO ROOM 220 BED 2. 41 YRS OLD WF FROM HOME. C/O VOMITED COFFEE BROWN AT HOME. A&OX3. DENIES PAIN. HL IN PLACE. ON RA. NO RESP DISTRESS NOTED. CALL CELESTE IN REACH. ORIENTED TO ROOM & SURROUNDING. NPO ORDERED. SETTLED TO SLEEP.
[2016-11-09 08:48] LABS: PT 17.3 SEC (9.4-12.5)
[2016-11-09 08:49] LABS: ABSOLUTE BASOPHIL COUNT 0 /CUMM (0.0-0.2); ABSOLUTE EOSINOPHIL COUNT 0.1 /CUMM (0.0-0.7); ABSOLUTE GRANULOCYTE CT 4.1 /CUMM (1.4-6.5); ABSOLUTE LYMPH COUNT 1.3 /CUMM (1.2-3.4); ABSOLUTE MONOCYTE COUNT 0.3 /CUMM (0.10-0.60); BASOPHIL % 0.3 % (0.0-2.0); EOSINOPHIL % 1.1 % (0-5); GRANULOCYTE % 71.8 % (42.2-75.2); HEMATOCRIT 35.3 % (42-52); MEAN CORPUSCULAR HGB 26.9 PG (27.0-31.0); MEAN CORPUSCULAR HGB CONC 32.8 G/DL (33.0-37.0); MEAN CORPUSCULAR VOLUME 81.9 FL (80.0-94.0); MEAN PLATELET VOLUME 7.7 FL (7.4-10.4); PLATELET COUNT 177 /CUMM (130-400); RBC DISTRIBUTION WIDTH 15.6 % (11.5-14.5); RED BLOOD CELL CT 4.31 /CUMM (4.70-6.10); WHITE BLOOD CELL COUNT 5.8 /CUMM (4.8-10.8)
[2016-11-09 11:09] VITALS: BP 106/54
--- NOTE | 2016-11-09 12:02 | PN- Att Addend ---
Attending Addendum Attending Brief Note Patient seen and examined. Plan of care discussed with the medical team and the patient. Available lab work and radiology test reports were reviewed. Patient has a nausea vomiting or fever. Commands awake right upper quadrant pain. Vital Signs Date Time Temp Pulse Resp B/P Pulse O2 O2 Flow FiO2 Ox Delivery Rate 11/09 0720 97.7 86 20 132/70 93 Room Air 11/09 0339 97.7 89 20 130/70 95 Room Air 11/08 2202 99.4 95 18 144/71 97 Room Air 11/08 2002 97.8 87 18 133/72 95 Room Air Room Air 11/08 1812 98.0 97 20 118/79 96 Room Air Intake & Output 11/09 1600 11/09 0800 11/09 0000 Intake Total 2262 Output Total Balance 2262 Intake, IV 2262 Intake, Oral 0 Number 0 Bowel Movements Patient 320 lb 320 lb Weight Exam: General: Patient obese male who is awake alert oriented without any distress CVS: S1 plus S2 without any murmur or gallops Chest: Few scattered crepitation without any wheeze. There is no respiratory distress. Abdomen: Soft abdomen with mild right upper quadrant discomfort. 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 without any focal neuro deficit and follows command appropriately Extremities: No edema; no clubbing or cyanosis noted Laboratory Tests 11/09 11/09 11/09 0830 0313 0313 Chemistry Sodium (137 - 145 mmol/L) 137 Potassium (3.5 - 5.1 mmol/L) 3.7 Chloride (98 - 107 mmol/L) 102 Carbon Dioxide (22 - 30 mmol/L) 24 Anion Gap (5 - 16) 10 BUN (9 - 20 mg/dL) 11 Creatinine (0.7 - 1.2 mg/dL) 0.6 L Estimated GFR (>60 ml/min) > 60 BUN/Creatinine Ratio (7 - 25 %) 18.3 Total Bilirubin (0.2 - 1.3 mg/dL) 1.5 H Direct Bilirubin (< 0.4 mg/dL) 0.4 AST (17 - 59 U/L) 789 H ALT (21 - 72 U/L) 1159 H Alkaline Phosphatase (< 127 U/L) < 20 Ammonia (9 - 30 umol/L) 12 Lactate Dehydrogenase (313 - 618 U/L) 2363 H Total Protein (6.3 - 8.2 g/dL) 6.1 L Albumin (3.5 - 5.0 g/dL) 3.5 Coagulation PT (9.4 - 12.5 SEC) 17.3 H INR (0.90 - 1.17) 1.66 H Hematology CBC w Diff NO MAN DIFF REQ WBC (4.8 - 10.8 /CUMM) 5.8 RBC (4.70 - 6.10 /CUMM) 4.31 L Hgb (14.0 - 18.0 G/DL) 11.6 L Hct (42 - 52 %) 35.3 L MCV (80.0 - 94.0 FL) 81.9 MCH (27.0 - 31.0 PG) 26.9 L RDW (11.5 - 14.5 %) 15.6 H Plt Count (130 - 400 /CUMM) 177 MPV (7.4 - 10.4 FL) 7.7 Gran % (42.2 - 75.2 %) 71.8 Lymphocytes % (20.5 - 51.1 %) 21.7 Monocytes % (1.7 - 9.3 %) 5.1 Eosinophils % (0 - 5 %) 1.1 Basophils % (0.0 - 2.0 %) 0.3 Absolute Granulocytes (1.4 - 6.5 /CUMM) 4.1 Absolute Lymphocytes (1.2 - 3.4 /CUMM) 1.3 Absolute Monocytes (0.10 - 0.60 /CUMM) 0.3 Absolute Eosinophils (0.0 - 0.7 /CUMM) 0.1 Absolute Basophils (0.0 - 0.2 /CUMM) 0 PUBS MCHC (33.0 - 37.0 G/DL) 32.8 L 11/09 11/08 0313 1904 Chemistry Sodium (137 - 145 mmol/L) 135 L Potassium (3.5 - 5.1 mmol/L) 3.7 Chloride (98 - 107 mmol/L) 101 Carbon Dioxide (22 - 30 mmol/L) 26 Anion Gap (5 - 16) 7 BUN (9 - 20 mg/dL) 11 Creatinine (0.7 - 1.2 mg/dL) 0.7 Estimated GFR (>60 ml/min) > 60 BUN/Creatinine Ratio (7 - 25 %) 15.7 Uric Acid (3.5 - 8.5 mg/dL) 5.7 Total Bilirubin (0.2 - 1.3 mg/dL) 1.6 H Direct Bilirubin (< 0.4 mg/dL) 0.5 H AST (17 - 59 U/L) 850 H ALT (21 - 72 U/L) 1076 H Alkaline Phosphatase (< 127 U/L) 53 Total Protein (6.3 - 8.2 g/dL) 6.0 L Albumin (3.5 - 5.0 g/dL) 3.4 L TSH (0.270 - 4.200 uIU/mL) 0.766 Free T4 (0.64 - 1.79 ng/dL) 1.35 Coagulation PT (9.4 - 12.5 SEC) 17.6 H INR (0.90 - 1.17) 1.68 H Hematology CBC w Diff NO MAN DIFF REQ WBC (4.8 - 10.8 /CUMM) 6.7 RBC (4.70 - 6.10 /CUMM) 4.30 L Hgb (14.0 - 18.0 G/DL) 11.4 L Hct (42 - 52 %) 35.1 L MCV (80.0 - 94.0 FL) 81.6 MCH (27.0 - 31.0 PG) 26.5 L RDW (11.5 - 14.5 %) 15.6 H Plt Count (130 - 400 /CUMM) 200 MPV (7.4 - 10.4 FL) 7.7 Gran % (42.2 - 75.2 %) 72.3 Lymphocytes % (20.5 - 51.1 %) 18.7 L Monocytes % (1.7 - 9.3 %) 7.9 Eosinophils % (0 - 5 %) 1.0 Basophils % (0.0 - 2.0 %) 0.1 Absolute Granulocytes (1.4 - 6.5 /CUMM) 4.9 Absolute Lymphocytes (1.2 - 3.4 /CUMM) 1.3 Absolute Monocytes (0.10 - 0.60 /CUMM) 0.5 Absolute Eosinophils (0.0 - 0.7 /CUMM) 0.1 Absolute Basophils (0.0 - 0.2 /CUMM) 0 PUBS MCHC (33.0 - 37.0 G/DL) 32.5 L Retic Count (0.5 - 2.0 %) 1.93 Immunology IMELDA Titer Pending Anti-Nuclear Antibody Pending Toxicology Urine Opiates Screen (>2000 NG/ML) < 100.00 Methadone Screen (>300 NG/ML) < 40 Barbiturate Screen (>200 NG/ML) < 60 Ur Phencyclidine Scrn (>25 NG/ML) < 6.00 Amphetamines Screen (>1000 NG/ML) < 100 U Benzodiazepines Scrn (>200 NG/ML) < 85 Urine Cocaine Screen (>300 NG/ML) < 50 Urine Cannabis Screen (>50 NG/ML) < 5.00 Urines Urine Color (YEL,AMB,STR) YEL Urine Clarity (CLEAR) CLEAR Urine pH (5.0 - 8.0) 6.0 Ur Specific [place] (1.001 - 1.035) >= 1.030 Urine Protein (NEG,<30 MG/DL) 30 H Urine Ketones (NEG) 40 H Urine Nitrite (NEG) NEG Urine Bilirubin (NEG) NEG@ICTO Urine Urobilinogen (0.1 - 1.0 EU/dl) 1.0 Ur Leukocyte Esterase (NEG) NEG Ur Microscopic SEDIMENT EXAMINED Urine WBC (0 - 2 /HPF) RARE Ur Epithelial Cells (NONE,FEW) FEW Urine Bacteria (NEG/NONE) FEW H Urine Mucus (FEW,NONE) MOD H Urine Hemoglobin (NEG) NEG Urine Glucose (N MG/DL) NEG 11/08 11/08 11/08 1858 1858 1858 Chemistry Sodium (137 - 145 mmol/L) 137 Potassium (3.5 - 5.1 mmol/L) 3.9 Chloride (98 - 107 mmol/L) 98 Carbon Dioxide (22 - 30 mmol/L) 26 Anion Gap (5 - 16) 12 BUN (9 - 20 mg/dL) 11 Creatinine (0.7 - 1.2 mg/dL) 0.7 Estimated GFR (>60 ml/min) > 60 BUN/Creatinine Ratio (7 - 25 %) 15.7 Glucose (65 - 99 mg/dL) 93 Calcium (8.4 - 10.2 mg/dL) 9.3 Iron (49 - 181 ug/dL) 68 TIBC (261 - 462 ug/dL) 455 Ferritin (17.9 - 464 ng/mL) 140.0 Total Bilirubin (0.2 - 1.3 mg/dL) 1.7 H AST (17 - 59 U/L) 773 H ALT (21 - 72 U/L) 838 H Alkaline Phosphatase (< 127 U/L) 63 Total Protein (6.3 - 8.2 g/dL) 7.1 Albumin (3.5 - 5.0 g/dL) 4.2 Globulin (1.9 - 4.2 gm/dL) 2.9 Albumin/Globulin Ratio (1.1 - 2.2 %) 1.4 Lipase (23 - 300 U/L) 75 Coagulation PT (9.4 - 12.5 SEC) 17.3 H INR (0.90 - 1.17) 1.66 H Hematology CBC w Diff NO MAN DIFF REQ WBC (4.8 - 10.8 /CUMM) 7.9 RBC (4.70 - 6.10 /CUMM) 5.00 Hgb (14.0 - 18.0 G/DL) 13.1 L Hct (42 - 52 %) 40.4 L MCV (80.0 - 94.0 FL) 80.9 MCH (27.0 - 31.0 PG) 26.1 L RDW (11.5 - 14.5 %) 15.5 H Plt Count (130 - 400 /CUMM) 220 MPV (7.4 - 10.4 FL) 7.3 L Gran % (42.2 - 75.2 %) 82.0 H Lymphocytes % (20.5 - 51.1 %) 12.2 L Monocytes % (1.7 - 9.3 %) 4.9 Eosinophils % (0 - 5 %) 0.7 Basophils % (0.0 - 2.0 %) 0.2 Absolute Granulocytes (1.4 - 6.5 /CUMM) 6.5 Absolute Lymphocytes (1.2 - 3.4 /CUMM) 1.0 L Absolute Monocytes (0.10 - 0.60 /CUMM) 0.4 Absolute Eosinophils (0.0 - 0.7 /CUMM) 0.1 Absolute Basophils (0.0 - 0.2 /CUMM) 0 PUBS MCHC (33.0 - 37.0 G/DL) 32.3 L Serology Hepatitis A IgM Ab (NONREACTIVE) Pending Hep Bs Antigen (NONREACTIVE) Pending Hep B Core IgM Ab Conf (NONREACTIVE) Pending Hepatitis C Antibody (NONREACTIVE) Pending HIV 1&2 Ab Western Blot (NONREACTIVE) NONREACTIVE Infectious [place] Titer (NEGATIVE) NEGATIVE Toxicology Acetaminophen (10.0 - 30.0 ug/mL) < 10.0 L Serum Alcohol (<10 MG/DL) < 10.0 Assessment * Acute on chronic hepatitis with recent worsening of LFTs; etiology is unclear at this point * History of schizophrenia * History of Preston's thyroiditis * History of prediabetes * History of anxiety Plan * Continue NAC * Continue to hold Lipitor * GI consult * Repeat LFTs tomorrow * Psychiatry consult to consider alternative to risperidone * Follow-up lab work * Note the patient has a distant family history of hemochromatosis * Check ferritin and transferrin saturation * Ultrasound of liver
--- NOTE | 2016-11-09 12:38 | Cons- Gastroenterology ---
General Information and HPI Consulting Request Date of Consult: 11/09/16 Requested By: GRISELDA ROSS,MIRA Reason for Consult: Increased LFTs, hematemesis. Right upper quadrant pain. Source of Information: patient, family, old records Exam Limitations: no limitations History of Present Illness: Mr. Dodson is a 41-year-old male with a previous medical history of schizophrenia who was admitted to [facility] last night after he presented for the second time in 2 days with right upper quadrant pain, nausea, and vomiting of coffee-ground emesis. He first presented to the emergency room on Thursday night with reports of right upper quadrant pain associated with nausea and bilious vomiting. He had a moderate transaminitis, but negative CAT scan except for some hepatic steatosis and he was subsequently sent home. His symptoms persisted throughout the day yesterday causing him to return to the emergency room and he was admitted overnight after he was found to have a worsening transaminitis and he also had a bout of a scant amount of hematemesis in the emergency room without any hemodynamic instability. He has been having some right upper quadrant pain intermittently for the past several months, but it has not been as severe it was over the past 2 days. He does feel that he is jaundiced now, but he has not noticed that previously. He is also without any reports of krishna-colored stool or dark urine. He also denies any burning epigastric discomfort, heartburn or dysphagia. He has recently been started on a statin several weeks ago, but there have been no other medication changes for him recently. He also notes that he has not drank at all for the past 2 months which is around the time the right upper quadrant pain developed. He notes that he does take a root extract, but he has also not been on this for over a month. He denies significant Tylenol use. He does that he has been told he has had increased LFTs in the past, but has never been given a formal diagnosis. He was admitted to the medical service overnight and this morning he notes having some nausea and bilious vomiting and some associated right upper quadrant discomfort, but no overt pain. He has been afebrile, alert and oriented and lucid and hemodynamically stable since admission. He was also started on n-acetylcyteine early this morning as his transaminases were noted to be worsening, but his Tylenol level was negative. Allergies/Medications Allergies: Coded Allergies: Penicillins (Intermediate, RASH 11/16/15) Home Med List: Atorvastatin Calcium 20 MG TABLET 1 TAB PO DAILY CHOLESTEROL (Reported) Gabapentin 300 MG CAPSULE 1 CAP PO DAILY NERVE PAIN (Reported) Levothyroxine Sodium 100 MCG TABLET 1 TAB PO DAILY HASHIMOTOS (Reported) Lorazepam 0.5 MG TABLET 1 TAB PO BID PRN ANXIETY (Reported) Metformin HCl 1,000 MG TABLET 1 TAB PO QAM PRE-DM (Reported) Omeprazole 20 MG TABLET.DR 1 TAB PO DAILY STOMACH HEALTH Ondansetron (Zofran Odt) 4 MG TAB.RAPDIS 1 TAB PO Q6 PRN NAUSEA Oxycodone HCl (Roxicodone) 5 MG TABLET 2 TAB PO Q6 PRN PAIN Risperidone Microspheres (Risperdal Consta) 25 MG/2 ML SYRINGE 25 MG IM Q2W MENTAL HEALTH (Reported) Current Medications: Current Medications Sig/Yesica Start time Last Medication Dose Route Stop Time Status Admin Acetylcysteine 10,000 MG ONCE ONE 11/09 1130 AC Dextrose/Water 950 ML IV 11/10 0329 Acetylcysteine 5,000 MG ONCE ONE 11/09 0730 DC 11/09 Dextrose/Water 475 ML IV 11/09 1129 0746 Acetylcysteine 15,000 MG ONCE ONE 11/09 0630 DC 11/09 Dextrose/Water 125 ML IV 11/09 0729 0645 Diphenhydramine HCl 25 MG Q6P PRN 11/09 0015 AC IV Ketorolac 15 MG Q6P PRN 11/09 0015 DC Tromethamine IV Levothyroxine Sodium 50 MCG DAILY 11/09 1000 AC 11/09 IV 1049 Lorazepam 0.5 MG Q12P PRN 11/09 0030 AC IV Morphine Sulfate 2 MG Q4P PRN 11/09 0015 AC IV Ondansetron HCl 4 MG Q6P PRN 11/09 0015 CAN IV Ondansetron HCl 4 MG Q6P PRN 11/09 0015 AC 11/09 IV 0744 Ondansetron HCl 0 .STK-MED ONE 11/08 2335 DC .ROUTE Ondansetron HCl 4 MG ONCE ONE 11/08 2300 DC 11/08 IV 11/08 2301 2350 Pantoprazole Sodium 40 MG Q12 11/09 1000 AC 11/09 IV 1049 Pantoprazole Sodium 0 .STK-MED ONE 11/08 2335 DC IV Pantoprazole Sodium 40 MG ONCE ONE 11/08 2300 DC 11/08 IV 11/08 2301 2350 Sodium Chloride 1,000 ML .Q10H 11/09 0015 AC 11/09 IV 11/09 2013 0320 Sodium Chloride 1,000 ML BOLUS ONE 11/08 2300 DC 11/08 IV 11/09 0059 2350 Sodium Chloride 1,000 ML BOLUS ONE 11/08 2300 DC 11/09 IV 11/08 2359 0200 Past History Travel History Traveled to [place] past 21 day No Medical History Blood Transfusion Hx: No Neurological: L LEG NERVE DAMAGE EENT: DRY NOSE WITH NOSE BLEED Cardiovascular: HIGH CHOL Respiratory: bronchitis Gastrointestinal: upper GI bleed Hepatic: FATTY LIVER ELEVATED LIVER ENYZMES Renal: NONE Musculoskeletal: fracture, ARTHRITIS Psychiatric: anxiety, schizophrenia ( Per patient questioning) Endocrine: diabetes, Preston's thyroiditis Blood Disorders: NONE Cancer(s): NONE 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 Home Services at Home: None Primary Language: Yi Smoking Status: Former Smoker ETOH Use: previous use Illicit Drug Use: denies illicit drug use Living Will? no Functional Ability ADLs Independent: dressing, eating, toileting, bathing. Ambulation: independent IADLs Independent: shopping, housework, finances, food prep, telephone, transportation , medication admin. Review of Systems Review of Systems Constitutional: Reports: malaise. Denies: chills, diaphoresis, fever. EENTM: Denies: no symptoms. Cardiovascular: Denies: no symptoms. Respiratory: Denies: no symptoms. GI: Reports: see HPI. Genitourinary: Denies: no symptoms. Musculoskeletal: Denies: no symptoms. Skin: Denies: no symptoms. Neurological/Psychological: Denies: no symptoms. Hematologic/Endocrine: Denies: no symptoms. Immunologic/Allergic: Denies: no symptoms. All Other Systems: Reviewed and Negative Exam & Diagnostic Data Vital Signs and I&O Vital Signs Date Time Temp Pulse Resp B/P Pulse O2 O2 Flow FiO2 Ox Delivery Rate 11/09 0720 97.7 86 20 132/70 93 Room Air 11/09 0339 97.7 89 20 130/70 95 Room Air 11/08 2202 99.4 95 18 144/71 97 Room Air 11/08 2002 97.8 87 18 133/72 95 Room Air Room Air 11/08 1812 98.0 97 20 118/79 96 Room Air Intake & Output 11/09 0400 11/08 1600 11/08 0400 11/07 0400 Intake Total 2262 Output Total Balance 2262 Intake, IV 2262 Intake, Oral 0 Number 0 Bowel Movements Patient 320 lb Weight Physical Exam General Appearance: well developed/nourished, no apparent distress, alert, comfortable, obese Head: atraumatic, normal appearance Eyes: Bilateral: normal appearance. Ears, Nose, Throat: normal pharynx, normal ENT inspection Neck: normal inspection, supple, full range of motion Respiratory: normal breath sounds, chest non-tender, no respiratory distress Cardiovascular: regular rate/rhythm Gastrointestinal: normal bowel sounds, soft, non-tender, no organomegaly Rectal: deferred Back: normal inspection, normal range of motion Extremities: normal inspection, normal range of motion, no edema Neurologic/Psych: no motor/sensory deficits, awake, alert, oriented x 3, no asterixis Skin: intact, normal color, warm/dry Results Pertinent Lab Results: Laboratory Tests 11/09 11/09 11/09 0830 0313 0313 Chemistry Sodium (137 - 145 mmol/L) 137 Potassium (3.5 - 5.1 mmol/L) 3.7 Chloride (98 - 107 mmol/L) 102 Carbon Dioxide (22 - 30 mmol/L) 24 Anion Gap (5 - 16) 10 BUN (9 - 20 mg/dL) 11 Creatinine (0.7 - 1.2 mg/dL) 0.6 L Estimated GFR (>60 ml/min) > 60 BUN/Creatinine Ratio (7 - 25 %) 18.3 Total Bilirubin (0.2 - 1.3 mg/dL) 1.5 H Direct Bilirubin (< 0.4 mg/dL) 0.4 AST (17 - 59 U/L) 789 H ALT (21 - 72 U/L) 1159 H Alkaline Phosphatase (< 127 U/L) < 20 Ammonia (9 - 30 umol/L) 12 Lactate Dehydrogenase (313 - 618 U/L) 2363 H Total Protein (6.3 - 8.2 g/dL) 6.1 L Albumin (3.5 - 5.0 g/dL) 3.5 Coagulation PT (9.4 - 12.5 SEC) 17.3 H INR (0.90 - 1.17) 1.66 H Hematology CBC w Diff NO MAN DIFF REQ WBC (4.8 - 10.8 /CUMM) 5.8 RBC (4.70 - 6.10 /CUMM) 4.31 L Hgb (14.0 - 18.0 G/DL) 11.6 L Hct (42 - 52 %) 35.3 L MCV (80.0 - 94.0 FL) 81.9 MCH (27.0 - 31.0 PG) 26.9 L RDW (11.5 - 14.5 %) 15.6 H Plt Count (130 - 400 /CUMM) 177 MPV (7.4 - 10.4 FL) 7.7 Gran % (42.2 - 75.2 %) 71.8 Lymphocytes % (20.5 - 51.1 %) 21.7 Monocytes % (1.7 - 9.3 %) 5.1 Eosinophils % (0 - 5 %) 1.1 Basophils % (0.0 - 2.0 %) 0.3 Absolute Granulocytes (1.4 - 6.5 /CUMM) 4.1 Absolute Lymphocytes (1.2 - 3.4 /CUMM) 1.3 Absolute Monocytes (0.10 - 0.60 /CUMM) 0.3 Absolute Eosinophils (0.0 - 0.7 /CUMM) 0.1 Absolute Basophils (0.0 - 0.2 /CUMM) 0 PUBS MCHC (33.0 - 37.0 G/DL) 32.8 L 11/09 11/08 0313 1904 Chemistry Sodium (137 - 145 mmol/L) 135 L Potassium (3.5 - 5.1 mmol/L) 3.7 Chloride (98 - 107 mmol/L) 101 Carbon Dioxide (22 - 30 mmol/L) 26 Anion Gap (5 - 16) 7 BUN (9 - 20 mg/dL) 11 Creatinine (0.7 - 1.2 mg/dL) 0.7 Estimated GFR (>60 ml/min) > 60 BUN/Creatinine Ratio (7 - 25 %) 15.7 Uric Acid (3.5 - 8.5 mg/dL) 5.7 Total Bilirubin (0.2 - 1.3 mg/dL) 1.6 H Direct Bilirubin (< 0.4 mg/dL) 0.5 H AST (17 - 59 U/L) 850 H ALT (21 - 72 U/L) 1076 H Alkaline Phosphatase (< 127 U/L) 53 Total Protein (6.3 - 8.2 g/dL) 6.0 L Albumin (3.5 - 5.0 g/dL) 3.4 L TSH (0.270 - 4.200 uIU/mL) 0.766 Free T4 (0.64 - 1.79 ng/dL) 1.35 Coagulation PT (9.4 - 12.5 SEC) 17.6 H INR (0.90 - 1.17) 1.68 H Hematology CBC w Diff NO MAN DIFF REQ WBC (4.8 - 10.8 /CUMM) 6.7 RBC (4.70 - 6.10 /CUMM) 4.30 L Hgb (14.0 - 18.0 G/DL) 11.4 L Hct (42 - 52 %) 35.1 L MCV (80.0 - 94.0 FL) 81.6 MCH (27.0 - 31.0 PG) 26.5 L RDW (11.5 - 14.5 %) 15.6 H Plt Count (130 - 400 /CUMM) 200 MPV (7.4 - 10.4 FL) 7.7 Gran % (42.2 - 75.2 %) 72.3 Lymphocytes % (20.5 - 51.1 %) 18.7 L Monocytes % (1.7 - 9.3 %) 7.9 Eosinophils % (0 - 5 %) 1.0 Basophils % (0.0 - 2.0 %) 0.1 Absolute Granulocytes (1.4 - 6.5 /CUMM) 4.9 Absolute Lymphocytes (1.2 - 3.4 /CUMM) 1.3 Absolute Monocytes (0.10 - 0.60 /CUMM) 0.5 Absolute Eosinophils (0.0 - 0.7 /CUMM) 0.1 Absolute Basophils (0.0 - 0.2 /CUMM) 0 PUBS MCHC (33.0 - 37.0 G/DL) 32.5 L Retic Count (0.5 - 2.0 %) 1.93 Immunology IMELDA Titer Pending Anti-Nuclear Antibody Pending Toxicology Urine Opiates Screen (>2000 NG/ML) < 100.00 Methadone Screen (>300 NG/ML) < 40 Barbiturate Screen (>200 NG/ML) < 60 Ur Phencyclidine Scrn (>25 NG/ML) < 6.00 Amphetamines Screen (>1000 NG/ML) < 100 U Benzodiazepines Scrn (>200 NG/ML) < 85 Urine Cocaine Screen (>300 NG/ML) < 50 Urine Cannabis Screen (>50 NG/ML) < 5.00 Urines Urine Color (YEL,AMB,STR) YEL Urine Clarity (CLEAR) CLEAR Urine pH (5.0 - 8.0) 6.0 Ur Specific Zearing (1.001 - 1.035) >= 1.030 Urine Protein (NEG,<30 MG/DL) 30 H Urine Ketones (NEG) 40 H Urine Nitrite (NEG) NEG Urine Bilirubin (NEG) NEG@ICTO Urine Urobilinogen (0.1 - 1.0 EU/dl) 1.0 Ur Leukocyte Esterase (NEG) NEG Ur Microscopic SEDIMENT EXAMINED Urine WBC (0 - 2 /HPF) RARE Ur Epithelial Cells (NONE,FEW) FEW Urine Bacteria (NEG/NONE) FEW H Urine Mucus (FEW,NONE) MOD H Urine Hemoglobin (NEG) NEG Urine Glucose (N MG/DL) NEG 11/08 11/08 11/08 1858 1858 1858 Chemistry Sodium (137 - 145 mmol/L) 137 Potassium (3.5 - 5.1 mmol/L) 3.9 Chloride (98 - 107 mmol/L) 98 Carbon Dioxide (22 - 30 mmol/L) 26 Anion Gap (5 - 16) 12 BUN (9 - 20 mg/dL) 11 Creatinine (0.7 - 1.2 mg/dL) 0.7 Estimated GFR (>60 ml/min) > 60 BUN/Creatinine Ratio (7 - 25 %) 15.7 Glucose (65 - 99 mg/dL) 93 Calcium (8.4 - 10.2 mg/dL) 9.3 Iron (49 - 181 ug/dL) 68 TIBC (261 - 462 ug/dL) 455 Ferritin (17.9 - 464 ng/mL) 140.0 Total Bilirubin (0.2 - 1.3 mg/dL) 1.7 H AST (17 - 59 U/L) 773 H ALT (21 - 72 U/L) 838 H Alkaline Phosphatase (< 127 U/L) 63 Total Protein (6.3 - 8.2 g/dL) 7.1 Albumin (3.5 - 5.0 g/dL) 4.2 Globulin (1.9 - 4.2 gm/dL) 2.9 Albumin/Globulin Ratio (1.1 - 2.2 %) 1.4 Lipase (23 - 300 U/L) 75 Coagulation PT (9.4 - 12.5 SEC) 17.3 H INR (0.90 - 1.17) 1.66 H Hematology CBC w Diff NO MAN DIFF REQ WBC (4.8 - 10.8 /CUMM) 7.9 RBC (4.70 - 6.10 /CUMM) 5.00 Hgb (14.0 - 18.0 G/DL) 13.1 L Hct (42 - 52 %) 40.4 L MCV (80.0 - 94.0 FL) 80.9 MCH (27.0 - 31.0 PG) 26.1 L RDW (11.5 - 14.5 %) 15.5 H Plt Count (130 - 400 /CUMM) 220 MPV (7.4 - 10.4 FL) 7.3 L Gran % (42.2 - 75.2 %) 82.0 H Lymphocytes % (20.5 - 51.1 %) 12.2 L Monocytes % (1.7 - 9.3 %) 4.9 Eosinophils % (0 - 5 %) 0.7 Basophils % (0.0 - 2.0 %) 0.2 Absolute Granulocytes (1.4 - 6.5 /CUMM) 6.5 Absolute Lymphocytes (1.2 - 3.4 /CUMM) 1.0 L Absolute Monocytes (0.10 - 0.60 /CUMM) 0.4 Absolute Eosinophils (0.0 - 0.7 /CUMM) 0.1 Absolute Basophils (0.0 - 0.2 /CUMM) 0 PUBS MCHC (33.0 - 37.0 G/DL) 32.3 L Serology Hepatitis A IgM Ab (NONREACTIVE) Pending Hep Bs Antigen (NONREACTIVE) Pending Hep B Core IgM Ab Conf (NONREACTIVE) Pending Hepatitis C Antibody (NONREACTIVE) Pending HIV 1&2 Ab Western Blot (NONREACTIVE) NONREACTIVE Infectious [place] Titer (NEGATIVE) NEGATIVE Toxicology Acetaminophen (10.0 - 30.0 ug/mL) < 10.0 L Serum Alcohol (<10 MG/DL) < 10.0 Imaging/Other Studies: ct scan: EXAM TYPE: CAT - CT ABD & PELVIS W/ & W/O IV CO EXAMINATION: CT ABDOMEN AND PELVIS WITHOUT AND WITH CONTRAST CLINICAL INFORMATION: Hepatitis. Concern for hepatic mass. COMPARISON: 07/05/2014. TECHNIQUE: Contiguous axial thin section helical images of the abdomen and pelvis were performed without oral contrast and prior to and following the administration of 95 mL of intravenous Optiray 320. The data set was reformatted in the coronal and sagittal planes and reviewed on an independent workstation. DLP: 2704 mGy-cm. FINDINGS: The visualized lung bases are clear. There is a small pericardial effusion. The visualized portions of the heart are otherwise unremarkable. The liver is of normal size and diffuse decreased attenuation without focal lesions nor intrahepatic biliary ductal dilation. A normal gallbladder is identified. There is no wall thickening or discernible pericholecystic fluid. The spleen, pancreas, adrenal glands are unremarkable. Both kidneys are of normal size and attenuation without hydronephrosis or nephrolithiasis. Following the administration of IV contrast, prompt symmetric nephrograms are displayed. There is no abdominal free fluid. There is neither mesenteric nor retroperitoneal lymphadenopathy. Normal unopacified loops of small and large bowel are identified. A normal appendix is identified. There is no pelvic free fluid. The urinary bladder is unremarkable. There is neither pelvic nor inguinal lymphadenopathy. Bone windows: Neither sclerotic nor lytic bone lesions are identified. IMPRESSION: No evidence for acute abdominal or pelvic inflammatory or infectious processes. Hepatic steatosis. No hepatic mass lesions. Small pericardial effusion. Assessment/Plan Assessment/Recommendations: Assessment: Mr. Dodson is a 41-year-old obese male who presents with abdominal pain associated with nausea and vomiting and a moderate transaminitis of uncertain etiology. He had a CAT scan a day before admission which was negative for any obvious biliary pathology and only showed a fatty liver, but it is still possible that he may have gallstones that the CAT scan missed which may be accounting for his increased LFTs and GI symptoms. That being said, it would be a bit unusual for his symptoms to be biliary in etiology with having a normal alkaline phosphatase and relatively normal bilirubin, but it is still possible and an ultrasound should be obtained to rule out small stones. Another potential etiology of his increased LFTs and symptoms could be due to the statin he was recently started on and if this is the case I would expect his LFTs to improve with cessation. His increased LFTs are higher than one would expect from alcohol and the ratio also is not consistent with alcohol. It also appears as though he has underlying nonalcoholic steatohepatitis which may also be contributing to his baseline increased LFTs, but this does appear to be an acute increase which requires further attention. He reports a family history of hemachromatosis, but he has no evidence of iron overload on his iron studies and if anything his borderline iron deficient which makes this diagnosis unlikely. He had a negative viral hepatitis panel in August and it does not sound as though he has been engaging in any high risk behavior since that time, but a repeat hepatitis panel has been checked and this should be followed up as acute viral hepatitis can also cause this clinical picture. Other rare causes of increased LFTs such as Anthony's disease, alpha 1 antitrypsin deficiency or veno occlusive disease should also be considered, but these are rare diagnoses and clinically I feel they're unlikely. He did have a normal ceruloplasmin and copper level checked in 2013 by his primary care provider for increased LFTs at that time, but as ceruloplasmin can be an acute phase reactant this can lead to false negative results depending on when it was checed. Furthermore, his borderline low alkaline phosphatase, increased LDH and indirect bilirubin with a slight fall in his hemoglobin could be indicative of hemolysis, and his prior history of psychiatric illness can all be a subtle clue to Anthony disease, but again this is very rare. His hematemesis is likely secondary to a Celeste-Saavedra tear as he is without any significant melena and his BUN to creatinine ratio does not suggest active ongoing GI blood loss. While it may ultimately be reasonable to perform a diagnostic upper endoscopy to further evaluate his vomiting this is not urgent and if his vomiting resolves it can also potentially be pursued as an outpatient. Of greater concern are his increasing LFTs with an increasing INR, but he is currently without any signs of fulminant hepatic failure such as cerebral edema or hepatic encephalopathy and I'm hopeful that his LFTs will improve with supportive care alone. If his LFTs continue to worsen along with his INR and/or if he develops any evidence of hepatic encephalopathy with changes in his mental status will then have a low threshold to obtain a liver biopsy and/or transfer him to a liver transplant center. Recommendations: 1. Follow-up ultrasound results and if stones are seen would call a general surgery consult for evaluation for cholecystectomy and if this is pursued a liver biopsy can be obtained then. 2. Continue to hold his statin. 3. Follow daily LFTs and a daily INR. 4. Would not administer vitamin K so that the INR can be reliably followed as an indicator of his liver function. 5. Serial neurological exam should be obtained and GI should be notified if he develops any significant mental status changes. 6. Follow-up repeat viral hepatitis panel, and a, anti-smooth muscle antibody, EBV and CMV titers and would also recommend checking an alpha-1 antitrypsin level, ceruloplasmin, and copper level. 7. If available would check with ophthalmology if they would be able to perform a slit lamp exam to look for evidence of a Allen Kimberly ring which can also be done as an outpatient. 8. Would also check a haptoglobin to look for evidence of hemolysis. 9. Advance diet as tolerated and administer antiemetics as needed. 10. Place on oral PPI. 11. Continue N-acetylcysteine for now, but if LFTs and INR stabilizes will likely recommend discontinuing it without completing the full 17 dose regimen. 12. Keep nothing by mouth after midnight for possible upper endoscopy tomorrow, but if his LFTs improve and his diet is able to be advanced this can alternatively be pursued as an outpatient. I will continue to follow this patient and make further recommendations based on his clinical course and results of repeat blood work and imaging. Copies To: SKYLER ROSS,PATT Pruitt Consult Acknowledgment - Thank you for your consult request.
--- NOTE | 2016-11-09 13:08 | ULTRASOUND REPORT ---
EXAMINATION: US ABDOMEN LIMITED CLINICAL INFORMATION: Elevated LFTs. Vomiting. COMPARISON: 11/08/2016 CT scan TECHNIQUE: Real-time imaging of the right upper quadrant abdominal viscera. FINDINGS: PANCREAS: Not visualized. LIVER: Diffuse increased echogenicity. No focal lesion or biliary dilatation. GALLBLADDER: Gallstone measuring 19 mm. 6 mm polyp. No acute inflammatory changes are pericholecystic fluid. No sonographic Mcconnell's sign. COMMON BILE DUCT: Normal in caliber measuring 0.4 cm in diameter. RIGHT KIDNEY: Normal. No hydronephrosis. No renal calculi or focal parenchymal lesions. The kidney measures 12.6 cm in maximum dimension. FREE FLUID: None. IMPRESSION: 1 nonvisualization of pancreas. 2. Gallstones without definite acute inflammatory changes. 3. Changes favoring hepatic steatosis. No focal lesion. 4. 6 mm gallbladder polyp. Follow-up in 6 months recommended.
[2016-11-09 14:00] VITALS: BP 142/90
--- NOTE | 2016-11-09 19:27 | NUR ---
PT CALLED THIS RN INTO ROOM AND COMPLAINED OF EYES FEELING MORE WATERY, REDNESS & ALITTLE BLURRED VISION. PT DENIES ANY OTHER SYMPTOMS. EARLY EDUCATION TEACHER PEPITO NOTIFIED & IN TO SEE PT. WILL CONTINUE TO MONITOR.
[2016-11-09 21:30] VITALS: BP 120/80
[2016-11-10 06:38] VITALS: BP 114/60
--- NOTE | 2016-11-10 07:31 | PN- Housestaff ---
GRAZYNA WATTS 11/10/16 0730: Subjective Follow-up For: Coffee ground emesis Transaminitis Subjective: Patient is seen and examined this morning. He has been kept nothing by mouth for possible endoscopy today. Patient had no new complaint. He denies any active abdominal pain, diarrhea or constipation. Patient's LFTs are trending down after receiving an before meals yesterday. Patient remains afebrile with stable vitals. He does not have any leukocytosis creatinine is normal. Review of Systems Constitutional: Reports: see HPI. Objective Last 24 Hrs of Vital Signs/I&O Vital Signs Date Time Temp Pulse Resp B/P Pulse O2 O2 Flow FiO2 Ox Delivery Rate 11/10 0638 98.1 74 20 114/60 94 11/09 2130 98.4 77 20 120/80 96 11/09 1400 97.7 78 20 142/90 95 Room Air Intake & Output 11/10 1600 11/10 0800 11/10 0000 Intake Total 537.5 980 Output Total Balance 537.5 980 Intake, IV 487.5 500 Intake, Oral 50 480 Number 0 Bowel Movements Physical Exam General Appearance: Alert, Oriented X3, Cooperative Skin: No Rashes, No Breakdown HEENT: Atraumatic Neck: Supple Cardiovascular: Normal S1, Normal S2, No Murmurs Lungs: Normal Air Movement Abdomen: Soft, No Tenderness Neurological: Normal Tone Current Medications: Current Medications Sig/Yescia Start time Last Medication Dose Route Stop Time Status Admin Acetylcysteine 10,000 MG ONCE ONE 11/09 1130 DC 11/09 Dextrose/Water 950 ML IV 11/10 0329 1240 Diphenhydramine HCl 25 MG Q6P PRN 11/09 0015 AC IV Levothyroxine Sodium 50 MCG DAILY 11/09 1000 AC 11/10 IV 0934 Lorazepam 0.5 MG Q12P PRN 11/09 0030 AC IV Morphine Sulfate 2 MG Q4P PRN 11/09 0015 AC IV Naphazoline HCl/ 2 GTT 4 TIMES/DAY 11/09 1930 AC 11/09 Pheniramine Maleate OPH 2116 Omeprazole 40 MG DAILY AC 11/10 0700 AC 11/10 PO 0633 Ondansetron HCl 4 MG Q6P PRN 11/09 0015 AC 11/09 IV 0744 Pantoprazole Sodium 40 MG Q12 11/09 1000 DC 11/09 IV 1049 Patient Medication 1 UNIT ONE NR 11/09 1615 NE Teaching ED 11/09 1630 Sodium Chloride 1,000 ML .[id number] 11/10 0430 AC 11/10 IV 11/11 0709 0515 Sodium Chloride 1,000 ML .Q10H 11/09 0015 DC 11/09 IV 11/09 2013 0320 Last 24 Hrs of Lab/Michael Results Last 24 Hrs of Labs/Mics: Laboratory Tests 11/10/16 0648: Anion Gap 8, Estimated GFR > 60, BUN/Creatinine Ratio 10.0, Total Bilirubin 1.2, Direct Bilirubin 0.6 H, AST 431 H, ALT 1083 H, Alkaline Phosphatase 52, Total Protein 6.3, Albumin 3.6, PT 14.3 H, INR 1.37 H, CBC w Diff NO MAN DIFF REQ, RBC 4.35 L, MCV 81.4, MCH 26.8 L, RDW 15.7 H, MPV 8.1, Gran % 53.3, Lymphocytes % 29.9, Monocytes % 13.1 H, Eosinophils % 3.3, Basophils % 0.4, Absolute Granulocytes 2.6, Absolute Lymphocytes 1.5, Absolute Monocytes 0.6, Absolute Eosinophils 0.2, Absolute Basophils 0, PUBS MCHC 32.9 L 11/10/16 0600: [id number] Pending, Ceruloplasmin Pending, Anti-Smooth Muscle Ab Pending Assessment/Plan Assessment: Patient is 41 year old morbidly obese M with h/o Preston's thyroiditis w/ hypothyroidism, schizophrenia, arthritis, prediabetes, transaminitis that has been worked up in the past and 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 He was seen in the ER the night prior to admission for nausea and vomiting and was sent home on Zofran. Patient states that he has not used alcohol for past 60 days and prior to that he was consuming several packs a month. Patient has been recently on herbal medications including turmeric, milk thistle and dandelion tea. Patient denied any Tylenol use. He is not sexually active for 4-5 yrs now. Family h/o hemochromatosis in a cousin. Outpatient workup for transaminitis (LFTs trending up since 2013) serum copper and ceruloplasmin levels normal, Abd ultrasound showed normal liver architecture , and gallbladder polyps. Labs and vitals as above Monospot negative. CT abd/pelvis: hepatic steatosis, no hepatic mass lesions. CXR negative for any consolidation/effusion Acute liver injury/ transaminitis Patient has elevated liver enzymes along with elevated INR. However he is alert awake and no evidence of ongoing hepatic encephalopathy currently. Gastroenterology consult service on board. Patient was started on NAC yesterday His hepatitis panel is nonreactive, HIV nonreactive, infectious mononucleosis negative Patient's Shabana, anti-smooth muscle antibody, alpha 1 antitrypsin level, copper level, several plasmin level, haptoglobin pending Patient has LDH elevated to 2363 Cholelithiasis Ultrasound abdomen was significant for gallstones. Patient will eventually need surgery plan is for liver biopsy at the same time Gen. surgery consult requested Possible upper GI bleed. No active bleeding currently. Patient will have an EGD done today He will be maintained on Prilosec 40 mg daily Monitoring for alcohol detox Patient is maintained on several scale and when necessary Ativan however he has not required any DVT ppx Alps. Full code. Problem List: 1. Hypothyroid 2. Elevated liver enzymes Pain Ratin Pain Location: none Pain Goal: Pain 4 or less Pain Plan: morphine Tomorrow's Labs & Rationales: CBC BEP LFT LYDIA ROGERS MD 11/10/16 1255: Attending MD Review Statement Attending Statement Attending MD Statement: examined this patient, discuss w/resident/PA/HAND CULTIVATOR, agreed w/resident/PA/HAND CULTIVATOR, reviewed EMR data (avail), discussed with nursing, discussed with case mgmt, amended to note Attending Assessment/Plan: Patient seen and examined. Lying down comfortably in bed not in acute distress. No issues overnight. He reports some right upper quadrant discomfort. Denies nausea vomiting. No further episodes of vomiting blood. He has had no bowel movement since admission. Denies any bright red blood per rectum. On examination he is lying comfortably and not in any distress. He is alert and oriented 3 with no focal deficits. Abdomen is obese soft with mild right upper quadrant and right lower quadrant tenderness. No rebound. No guarding. No palpable organomegaly. Laboratory data shows slight downward trend of LFTs. Hemoglobin level is stable. Renal function is stable. Viral hepatitis panel is nonreactive. Problems: 1. Transaminitis; patient reports no history of abnormal LFTs in the past. 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 Potential triggers for his worsening levels include his recent start of statin therapy and use of chemotherapy in the past. He also has biliary stones but no evidence of obstruction currently. 2. Hematemesis currently resolved. 3. Hypertension Plan: -He is scheduled for EGD today for further workup of his hematemesis. -Continue to trend LFTs daily. -Surgical evaluation of his cholelithiasis. He will require cholecystectomy at some point. Decision about timing will be deferred to the general surgery and gastroenterology service. Liver biopsy can probably be done at the same time. -Follow-up laboratory work for hemochromatosis given his distant family history. If his serologic workup is positive causing obtain ophthalmology consultation in addition.
[2016-11-10 08:25] LABS: PT 14.3 SEC (9.4-12.5)
[2016-11-10 09:01] LABS: ABSOLUTE BASOPHIL COUNT 0 /CUMM (0.0-0.2); ABSOLUTE EOSINOPHIL COUNT 0.2 /CUMM (0.0-0.7); ABSOLUTE GRANULOCYTE CT 2.6 /CUMM (1.4-6.5); ABSOLUTE LYMPH COUNT 1.5 /CUMM (1.2-3.4); ABSOLUTE MONOCYTE COUNT 0.6 /CUMM (0.10-0.60); BASOPHIL % 0.4 % (0.0-2.0); EOSINOPHIL % 3.3 % (0-5); GRANULOCYTE % 53.3 % (42.2-75.2); HEMATOCRIT 35.4 % (42-52); MEAN CORPUSCULAR HGB 26.8 PG (27.0-31.0); MEAN CORPUSCULAR HGB CONC 32.9 G/DL (33.0-37.0); MEAN CORPUSCULAR VOLUME 81.4 FL (80.0-94.0); MEAN PLATELET VOLUME 8.1 FL (7.4-10.4); PLATELET COUNT 182 /CUMM (130-400); RBC DISTRIBUTION WIDTH 15.7 % (11.5-14.5); RED BLOOD CELL CT 4.35 /CUMM (4.70-6.10)
[2016-11-10 13:57] VITALS: BP 128/70
--- NOTE | 2016-11-10 14:36 | Proc Note Endoscopy ---
Endoscopy Procedure Medical History: unchanged (see meditech consult) Mental Status: alert/oriented Heart/Lung Eval Prior to Sedation: within normal limits Candidate for Sedation? Yes Procedure Date: 11/10/16 Procedure Type: EGD w/biopsy Customer Support Engineer: Connor Hammond MD ASA Classification: III Indications: Hematemesis. Instrument: diagnostic gastroscope Meds Received: MAC Patient's Tolerance: good Complications: none Extent Reached: second part of duodenum Procedure: After getting written informed consent the patient was placed in the left lateral decubitus position with pulse oximetry, cardiac monitoring, and supplemental oxygen given. A bite block was inserted and IV sedation was given until the desired effect was achieved. A high definition upper Olympus endoscope was then inserted into the mouth and advanced to the second portion of the duodenum with little difficulty. Retroflexed views and photodocumentation was obtained. Findings: Esophagus: The esophageal mucosa was grossly normal in appearance. The Z line was located at 43 cm from incisors and was mildly erythematous with one short erosion, but there were no ulcers, strictures, masses or varices appreciated. Stomach: The gastric mucosa was grossly normal in appearance except for mild prepyloric erythema. There were no ulcers, erosions, or masses appreciated. Distention and peristalsis of the stomach appeared normal. Retroflexed views were normal and did not reveal a significant hiatal hernia. Random biopsies were obtained from the antrum with cold biopsy forceps and were sent pathology further evaluation. Duodenum: The duodenal bulb was minimally erythematous, but there were no ulcers or erosions appreciated. The duodenal sweep and folds are grossly normal in appearance. Impression: 1. LA grade A reflux esophagitis. 2. Nonerosive gastritis duodenitis status post antral biopsies. Recommendations: 1. He should be placed on oral PPI once a day 30 minutes before first meal a day. 2. He should follow an antireflux regimen and attempts at weight loss via diet and exercise were recommended. 3. He should follow up the pathology results with me as an outpatient. 4. He should avoid NSAIDs. 5. A general surgery consult should be called for the gallstones appreciated on the ultrasound and complaints of right upper quadrant pain and if a CCY is recommended he should have a liver biopsy during the operation for further evaluation of his increased LFTs. 6. Advance diet as tolerated. 7. Administer antiemetics as needed. CC: SKYLER ROSS,PATT Pruitt
[2016-11-10 22:29] VITALS: BP 128/78
[2016-11-11 06:00] VITALS: BP 140/76
[2016-11-11 07:57] LABS: ABSOLUTE BASOPHIL COUNT 0 /CUMM (0.0-0.2); ABSOLUTE EOSINOPHIL COUNT 0.1 /CUMM (0.0-0.7); ABSOLUTE GRANULOCYTE CT 3.4 /CUMM (1.4-6.5); ABSOLUTE LYMPH COUNT 1.4 /CUMM (1.2-3.4); ABSOLUTE MONOCYTE COUNT 0.5 /CUMM (0.10-0.60); BASOPHIL % 0.5 % (0.0-2.0); EOSINOPHIL % 2.4 % (0-5); HEMATOCRIT 34.9 % (42-52); MEAN CORPUSCULAR HGB 26.6 PG (27.0-31.0); MEAN CORPUSCULAR HGB CONC 32.7 G/DL (33.0-37.0); MEAN CORPUSCULAR VOLUME 81.3 FL (80.0-94.0); MEAN PLATELET VOLUME 8.3 FL (7.4-10.4); PLATELET COUNT 186 /CUMM (130-400); RBC DISTRIBUTION WIDTH 15.7 % (11.5-14.5); RED BLOOD CELL CT 4.29 /CUMM (4.70-6.10); WHITE BLOOD CELL COUNT 5.5 /CUMM (4.8-10.8)
--- NOTE | 2016-11-11 08:05 | PN- Housestaff ---
GRAZYNA WATTS 11/11/16 0805: Subjective Follow-up For: Coffee ground emesis Transaminitis Subjective: Patient was resting comfortable in bed. Had abdominal pain this morning which has now resolved. Patient had an endoscopy done yesterday which was not significant for any clear bleeding source. His CBC continues to be stable. BEP pending. His diet is advanced in the morning to regular diet. Vital signs remained stable. Review of Systems Constitutional: Reports: see HPI. Objective Last 24 Hrs of Vital Signs/I&O Vital Signs Date Time Temp Pulse Resp B/P Pulse O2 O2 Flow FiO2 Ox Delivery Rate 11/11 0600 98.6 73 18 140/76 97 Room Air 11/10 2229 98.3 76 18 128/78 96 Room Air 11/10 1357 97.7 69 18 128/70 95 Room Air Intake & Output 11/11 1600 11/11 0800 11/11 0000 Intake Total 250 1020 Output Total Balance 250 1020 Intake, IV 10 300 Intake, Oral 240 720 Number 0 Bowel Movements Physical Exam General Appearance: Alert, Oriented X3, Cooperative, No Acute Distress Skin: No Rashes HEENT: Atraumatic Neck: Supple Cardiovascular: Regular Rate, Normal S1, Normal S2 Lungs: Clear to Auscultation, Normal Air Movement Abdomen: Soft, No Tenderness Neurological: Normal Speech, Normal Tone Extremities: No Edema, Normal Pulses Current Medications: Current Medications Sig/Yesica Start time Last Medication Dose Route Stop Time Status Admin Chlorhexidine 1 GM .STK-MED ONE 11/10 1457 DC Gluconate TOP 11/10 1458 Diphenhydramine HCl 25 MG Q6P PRN 11/09 0015 IV Levothyroxine Sodium 50 MCG DAILY 11/09 1000 AC 11/10 IV 0934 Lorazepam 0.5 MG Q12P PRN 11/09 0030 IV Morphine Sulfate 2 MG Q4P PRN 11/09 0015 IV Naphazoline HCl/ 2 GTT 4 TIMES/DAY 11/09 1930 AC 11/09 Pheniramine Maleate OPH 2116 Omeprazole 40 MG DAILY AC 11/10 0700 AC 11/11 PO 0514 Ondansetron HCl 4 MG Q6P PRN 11/09 0015 11/09 IV 0744 Patient Medication 1 ED .STK-MED ONE 11/10 1333 DC Teaching ED 11/10 1334 Sodium Chloride 1,000 ML .[id number] 11/10 0430 DC 11/10 IV 11/11 0709 0515 Last 24 Hrs of Lab/Michael Results Last 24 Hrs of Labs/Mics: Laboratory Tests 11/11/16 0622: Anion Gap 10, Estimated GFR > 60, BUN/Creatinine Ratio 10.0, Total Bilirubin 1.3 , Direct Bilirubin 0.6 H, AST 159 H, ALT 681 H, Alkaline Phosphatase 55, Total Protein 6.4, Albumin 3.6, CBC w Diff NO MAN DIFF REQ, RBC 4.29 L, MCV 81.3, MCH 26.6 L, RDW 15.7 H, MPV 8.3, Gran % 62.0, Lymphocytes % 26.2, Monocytes % 8.9, Eosinophils % 2.4, Basophils % 0.5, Absolute Granulocytes 3.4, Absolute Lymphocytes 1.4, Absolute Monocytes 0.5, Absolute Eosinophils 0.1, Absolute Basophils 0, PUBS MCHC 32.7 L 11/10/16 1140: Ref Lab Test Result Pending, Serum Copper Pending Assessment/Plan Assessment: Patient is 41 year old morbidly obese M with h/o Preston's thyroiditis w/ hypothyroidism, schizophrenia, arthritis, prediabetes, transaminitis that has been worked up in the past and 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 He was seen in the ER the night prior to admission for nausea and vomiting and was sent home on Zofran. Patient states that he has not used alcohol for past 60 days and prior to that he was consuming several packs a month. Patient has been recently on herbal medications including turmeric, milk thistle and dandelion tea. Patient denied any Tylenol use. He is not sexually active for 4-5 yrs now. Family h/o hemochromatosis in a cousin. Outpatient workup for transaminitis (LFTs trending up since 2014) serum copper and ceruloplasmin levels normal, Abd ultrasound showed normal liver architecture , and gallbladder polyps. Labs and vitals as above Monospot negative. CT abd/pelvis: hepatic steatosis, no hepatic mass lesions. CXR negative for any consolidation/effusion EGD on 11/10/16 1. LA grade A reflux esophagitis. 2. Nonerosive gastritis duodenitis status post antral biopsies. Acute liver injury/ transaminitis Patient has elevated liver enzymes along with elevated INR. However he is alert awake and no evidence of ongoing hepatic encephalopathy currently. Gastroenterology consult service on board. Patient was started on NAC on however it was not repeated per GI recommendations. His hepatitis panel is nonreactive, HIV nonreactive, infectious mononucleosis negative Patient's IMELDA, anti-smooth muscle antibody, alpha 1 antitrypsin level, copper level, several plasmin level, haptoglobin pending Patient has LDH elevated to 2363 Cholelithiasis Ultrasound abdomen was significant for gallstones. Patient will eventually need surgery plan is for liver biopsy at the same time Gen. surgery consult requested (Dr. Rodriguez) Possible upper GI bleed. No active bleeding currently. EGD revealed grade a reflux esophagitis. Patient is advised to keep off NSAIDs. He will be maintained on Prilosec 40 mg daily Monitoring for alcohol detox Patient is maintained on CIWA scale and when necessary Ativan however he has not required any DVT ppx Alps. Full code. Problem List: 1. Elevated liver enzymes Pain Ratin Pain Location: none Pain Goal: Pain 4 or less Pain Plan: tylenol prn for pain Tomorrow's Labs & Rationales: teo burton MD,LYDIA 11/11/16 1457: Attending MD Review Statement Attending Statement Attending MD Statement: examined this patient, discuss w/resident/PA/SPECIALIST FIELD ENGINEER, agreed w/resident/PA/SPECIALIST FIELD ENGINEER, reviewed EMR data (avail), discussed with nursing, discussed with case mgmt, amended to note Attending Assessment/Plan: Patient seen and examined. Resting comfortably and not in any acute distress. No issues overnight. EGD results noted. Patient reported to have gastritis. He will be continued on PPI therapy upon discharge. Currently denies any nausea vomiting. Denies any abdominal pain. On exam he has mild right upper quadrant and epigastric discomfort. There is no rebound or guarding. On review of laboratory data his LFTs are trending down nicely. He is afebrile and hemodynamically stable. Recommendations: -Continue to hold statin therapy upon discharge. Patient has also been advised to avoid herbal medications upon discharge. -Awaiting evaluation from the general surgery service regarding cholecystectomy. He will require liver biopsy as well to determine the cause of his transaminitis. -He complained of chest pain earlier on today. This has resolved. EKG shows no ST changes suggestive of ischemia. His troponin level is negative. He does have a history of anxiety disorder. Recommend continuing his Ativan therapy while inpatient. Pain could also be related to his gastritis.
[2016-11-11 14:23] VITALS: BP 130/70
--- NOTE | 2016-11-11 20:48 | NUR ---
INFORMED UNIQUE ROSS PT WAS STATED HE HAD CHEST PAIN EARLIR IN MORNING BEFORE MY SHIFT. PT STATED IT SUBSIDED. PT ALSO HAS ANXIETY AT TIMES. EKG AND TROPONIN WAS ADDED TO LAB. NO FURTHER ORDERS.CONTINUE TO MONITOR.
[2016-11-11 22:39] VITALS: BP 146/84
[2016-11-12 06:31] VITALS: BP 138/76
--- NOTE | 2016-11-12 07:30 | PN- Housestaff ---
GRAZYNA WATTS 11/12/16 0730: Subjective Follow-up For: Upper GI bleed Transaminitis Subjective: Patient seen and examined. She reports off some pelvic pain this morning. He states that he is noticing dark yellow urine. He says his chest pain has improved. Patient requests to be evaluated by Dr. Flores for his cholelithiasis. His CBC looks stable, his LFTs are improving. He looks afebrile with stable vital saturating 96 on room air. Review of Systems Constitutional: Reports: see HPI. Objective Last 24 Hrs of Vital Signs/I&O Vital Signs Date Time Temp Pulse Resp B/P Pulse O2 O2 Flow FiO2 Ox Delivery Rate 11/12 0631 98.0 88 20 138/76 96 Room Air 11/11 2239 98.0 82 20 146/84 96 Room Air 11/11 1423 98.8 85 20 130/70 97 Room Air Intake & Output 11/12 1600 11/12 0800 11/12 0000 Intake Total 250 250 Output Total Balance 250 250 Intake, IV 10 10 Intake, Oral 240 240 Physical Exam General Appearance: Alert, Oriented X3, Cooperative, No Acute Distress Skin: No Rashes, No Breakdown HEENT: Atraumatic Neck: Supple Cardiovascular: Regular Rate, Normal S1, Normal S2 Lungs: Normal Air Movement Abdomen: Normal Bowel Sounds, Soft, No Tenderness Neurological: Normal Speech Extremities: No Edema Current Medications: Current Medications Sig/Yesica Start time Last Medication Dose Route Stop Time Status Admin Diphenhydramine HCl 25 MG Q6P PRN 11/09 0015 IV Levothyroxine Sodium 0.1 MG DAILY 11/12 1000 PO Levothyroxine Sodium 50 MCG DAILY 11/09 1000 TN 11/11 IV 1020 Lorazepam 0.5 MG Q12P PRN 11/09 0030 11/11 IV 1040 Morphine Sulfate 2 MG Q4P PRN 11/09 0015 IV Naphazoline HCl/ 2 GTT 4 TIMES/DAY 11/09 1930 11/09 Pheniramine Maleate OPH 2116 Omeprazole 40 MG DAILY AC 11/10 0700 11/12 PO 0529 Ondansetron HCl 4 MG Q6P PRN 11/09 0015 11/09 IV 0744 Patient Medication 1 ED .STK-MED ONE 11/11 1402 TN Teaching ED 11/11 1403 Last 24 Hrs of Lab/Michael Results Last 24 Hrs of Labs/Mics: Laboratory Tests 11/12/16 0605: Anion Gap 10, Estimated GFR > 60, BUN/Creatinine Ratio 10.0, Total Bilirubin 1.0 , Direct Bilirubin 0.5 H, AST 71 H, ALT 478 H, Alkaline Phosphatase 52, Total Protein 6.7, Albumin 3.9, CBC w Diff NO MAN DIFF REQ, RBC 4.44 L, MCV 81.7, MCH 26.9 L, RDW 15.7 H, MPV 8.2, Gran % 55.1, Lymphocytes % 33.0, Monocytes % 9.2, Eosinophils % 2.4, Basophils % 0.3, Absolute Granulocytes 3.1, Absolute Lymphocytes 1.8, Absolute Monocytes 0.5, Absolute Eosinophils 0.1, Absolute Basophils 0, PUBS MCHC 32.9 L Assessment/Plan Assessment: Patient is 41 year old morbidly obese M with h/o Preston's thyroiditis w/ hypothyroidism, schizophrenia, arthritis, prediabetes, transaminitis that has been worked up in the past and 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 He was seen in the ER the night prior to admission for nausea and vomiting and was sent home on Zofran. Patient states that he has not used alcohol for past 60 days and prior to that he was consuming several packs a month. Patient has been recently on herbal medications including turmeric, milk thistle and dandelion tea. Patient denied any Tylenol use. He is not sexually active for 4-5 yrs now. Family h/o hemochromatosis in a cousin. Outpatient workup for transaminitis (LFTs trending up since 2013) serum copper and ceruloplasmin levels normal, Abd ultrasound showed normal liver architecture , and gallbladder polyps. Labs and vitals as above Monospot negative. CT abd/pelvis: hepatic steatosis, no hepatic mass lesions. CXR negative for any consolidation/effusion EGD on 11/10/16 1. LA grade A reflux esophagitis. 2. Nonerosive gastritis duodenitis status post antral biopsies. Acute liver injury/ transaminitis On admission patient had elevated liver enzymes along with elevated INR. His LFTs are trending down. He does not complain of any abdominal pain this morning. Patient is awake and alert there is no evidence of hepatic encephalopathy. Gastroenterology consult service on board. Patient was started on NAC on however it was not repeated per GI recommendations. His hepatitis panel is nonreactive, HIV nonreactive, infectious mononucleosis negative Patient's IMELDA, anti-smooth muscle antibody, alpha 1 antitrypsin level, copper level, several plasmin level are pending, haptoglobin 125 Patient has LDH elevated to 2363 Cholelithiasis Ultrasound abdomen was significant for gallstones. General surgery consult has been requested for evaluation for possible cholecystectomy as inpatient. Patient wants to be seen by Dr. Flores. Possible upper GI bleed. No active bleeding currently. EGD revealed grade a reflux esophagitis. Patient is advised to keep off NSAIDs. He will be maintained on Prilosec 40 mg daily Monitoring for alcohol detox Patient is maintained on CIWA scale and when necessary Ativan however he has not required any DVT ppx Alps. Full code. Problem List: 1. Elevated liver enzymes Pain Ratin Pain Location: pelvic area Pain Goal: Pain 4 or less Pain Plan: tylenol prn for pain Tomorrow's Labs & Rationales: lfts LYDIA ROGERS MD 11/12/16 1505: Attending MD Review Statement Attending Statement Attending MD Statement: examined this patient, discuss w/resident/PA/FURNACE CHARGING MACHINE OPERATOR, agreed w/resident/PA/FURNACE CHARGING MACHINE OPERATOR, reviewed EMR data (avail), discussed with nursing, discussed with case mgmt, amended to note Attending Assessment/Plan: Patient seen and examined. Lying comfortably in bed and not in any distress. No issues overnight. Denies nausea vomiting. Denies epigastric or right upper quadrant pain today. This morning he did complain of lower abdominal pain. On examination abdomen is soft with mild discomfort in the suprapubic region. No guarding. No rebound. Urinalysis obtained no evidence of infection. Bladder scan was done with no significant residual.. Gen. surgery consultation appreciated. Tentative plan is to perform cholecystectomy with liver biopsy Thursday. We'll continue to monitor LFTs. Reinforced the need to abstain from potentially hepatotoxic medications.
[2016-11-12 08:09] LABS: ABSOLUTE BASOPHIL COUNT 0 /CUMM (0.0-0.2); ABSOLUTE EOSINOPHIL COUNT 0.1 /CUMM (0.0-0.7); ABSOLUTE GRANULOCYTE CT 3.1 /CUMM (1.4-6.5); ABSOLUTE LYMPH COUNT 1.8 /CUMM (1.2-3.4); ABSOLUTE MONOCYTE COUNT 0.5 /CUMM (0.10-0.60); BASOPHIL % 0.3 % (0.0-2.0); EOSINOPHIL % 2.4 % (0-5); GRANULOCYTE % 55.1 % (42.2-75.2); HEMATOCRIT 36.3 % (42-52); MEAN CORPUSCULAR HGB 26.9 PG (27.0-31.0); MEAN CORPUSCULAR HGB CONC 32.9 G/DL (33.0-37.0); MEAN CORPUSCULAR VOLUME 81.7 FL (80.0-94.0); MEAN PLATELET VOLUME 8.2 FL (7.4-10.4); PLATELET COUNT 212 /CUMM (130-400); RBC DISTRIBUTION WIDTH 15.7 % (11.5-14.5); RED BLOOD CELL CT 4.44 /CUMM (4.70-6.10); WHITE BLOOD CELL COUNT 5.6 /CUMM (4.8-10.8)
--- NOTE | 2016-11-12 09:21 | Event Note ---
Event Note Event Note: Called Dr. Rogers consult service to request for surgical consult regarding cholelithiasis.
--- NOTE | 2016-11-12 09:47 | Cons- General Surgery ---
General Information and HPI Consulting Request Date of Consult: 11/12/16 Requested By: GRISELDA ROSS[facility] Reason for Consult: GALLSTONES History of Present Illness: I was requested to consult on this patient personally even though I'm not on- call. Apparently I was requested by the patient. In brief, he is a 41-year-old male who presents with acute onset of severe right upper quadrant abdominal pain associated with markedly elevated LFTs. He describes waxing and waning pain in the right upper quadrant for quite some time. He is not sure of the etiology. In the past, it was felt that his liver enzyme elevation was due to fatty liver. The current episode is much more severe than prior ones. It was associated with nausea and vomiting. No change to his bowel function. He was admitted to the medical service and gastroenterology consultation was obtained. They recommended liver biopsy to surgical etiology of his elevated LFTs. Admission CT scan of the abdomen pelvis was unrevealing for an acute inflammatory process. Ultrasound of the right upper quadrant showed a gallstone without pericholecystic fluid or gallbladder wall thickening. There is no common bile duct dilatation. Currently his pain is resolved. He began eating yesterday without exacerbation of his pain. He denies any new medications. He does take [id number]-brajomh supplements such as turmeric and milk thistle. Allergies/Medications Allergies: Coded Allergies: Penicillins (Intermediate, RASH 11/16/15) Home Med List: Atorvastatin Calcium 20 MG TABLET 1 TAB PO DAILY CHOLESTEROL (Reported) Gabapentin 300 MG CAPSULE 1 CAP PO DAILY NERVE PAIN (Reported) Levothyroxine Sodium 100 MCG TABLET 1 TAB PO DAILY HASHIMOTOS (Reported) Lorazepam 0.5 MG TABLET 1 TAB PO BID PRN ANXIETY (Reported) Metformin HCl 1,000 MG TABLET 1 TAB PO QAM PRE-DM (Reported) Ondansetron (Zofran Odt) 4 MG TAB.RAPDIS 1 TAB PO Q6 PRN NAUSEA Risperidone Microspheres (Risperdal Consta) 25 MG/2 ML SYRINGE 25 MG IM Q2W MENTAL HEALTH (Reported) Turmeric Root Extract (Turmeric) (Unknown Strength) CAPSULE 3 CAP PO PRN SUPPLEMENT (Reported) Past History Medical History Blood Transfusion Hx: No Neurological: L LEG NERVE DAMAGE EENT: DRY NOSE WITH NOSE BLEED Cardiovascular: HIGH CHOL Respiratory: bronchitis Gastrointestinal: upper GI bleed Hepatic: FATTY LIVER ELEVATED LIVER ENYZMES Renal: NONE Musculoskeletal: fracture, ARTHRITIS Psychiatric: anxiety, schizophrenia ( Per patient questioning) Endocrine: diabetes, Preston's thyroiditis Blood Disorders: NONE Cancer(s): NONE 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 Home Services at Home: None Primary Language: Turkmen Smoking Status: Former Smoker ETOH Use: previous use Illicit Drug Use: denies illicit drug use Living Will? no Functional Ability ADLs Independent: dressing, eating, toileting, bathing. Ambulation: independent IADLs Independent: shopping, housework, finances, food prep, telephone, transportation , medication admin. Review of Systems Review of Systems: ABDOMINAL PAIN PER HPI. NO CHEST PAIN, NO DYSPNEA ON EXERTION. REMAINDER 8 POINTS NEG. Exam & Diagnostic Data Vital Signs and I&O Vital Signs Date Time Temp Pulse Resp B/P Pulse O2 O2 Flow FiO2 Ox Delivery Rate 11/12 0631 98.0 88 20 138/76 96 Room Air 11/11 2239 98.0 82 20 146/84 96 Room Air 11/11 1423 98.8 85 20 130/70 97 Room Air Intake & Output 11/12 1600 11/12 0800 11/12 0000 11/11 1600 11/11 0800 11/11 0000 Intake Total 250 250 474 919 3386 Output Total Balance 250 250 852 045 4579 Intake, IV 10 10 20 10 300 Intake, Oral 240 240 750 240 720 Number 0 Bowel Movements Patient 319 lb Weight Physical Exam: GEN: LOOKS WELL. OBESE. NAD. A/O X 3 HEENT: ANICTERIC, MMM, PERRL NECK; SUPPLE WITHOUT ADENOPATHY. NO JVD CHEST; NONTENDER. NORMAL EXCURSION AND EFFORT ABD; SOFT, NONTENDER, NONDISTENDED. NO HERNIA EXT; NO CCE Last 24 Hours of Labs: Laboratory Tests 11/12 06 Chemistry Sodium (137 - 145 mmol/L) 139 Potassium (3.5 - 5.1 mmol/L) 4.0 Chloride (98 - 107 mmol/L) 104 Carbon Dioxide (22 - 30 mmol/L) 25 Anion Gap (5 - 16) 10 BUN (9 - 20 mg/dL) 9 Creatinine (0.7 - 1.2 mg/dL) 0.9 Estimated GFR (>60 ml/min) > 60 BUN/Creatinine Ratio (7 - 25 %) 10.0 Total Bilirubin (0.2 - 1.3 mg/dL) 1.0 Direct Bilirubin (< 0.4 mg/dL) 0.5 H AST (17 - 59 U/L) 71 H ALT (21 - 72 U/L) 478 H Alkaline Phosphatase (< 127 U/L) 52 Total Protein (6.3 - 8.2 g/dL) 6.7 Albumin (3.5 - 5.0 g/dL) 3.9 Hematology CBC w Diff NO MAN DIFF REQ WBC (4.8 - 10.8 /CUMM) 5.6 RBC (4.70 - 6.10 /CUMM) 4.44 L Hgb (14.0 - 18.0 G/DL) 11.9 L Hct (42 - 52 %) 36.3 L MCV (80.0 - 94.0 FL) 81.7 MCH (27.0 - 31.0 PG) 26.9 L RDW (11.5 - 14.5 %) 15.7 H Plt Count (130 - 400 /CUMM) 212 MPV (7.4 - 10.4 FL) 8.2 Gran % (42.2 - 75.2 %) 55.1 Lymphocytes % (20.5 - 51.1 %) 33.0 Monocytes % (1.7 - 9.3 %) 9.2 Eosinophils % (0 - 5 %) 2.4 Basophils % (0.0 - 2.0 %) 0.3 Absolute Granulocytes (1.4 - 6.5 /CUMM) 3.1 Absolute Lymphocytes (1.2 - 3.4 /CUMM) 1.8 Absolute Monocytes (0.10 - 0.60 /CUMM) 0.5 Absolute Eosinophils (0.0 - 0.7 /CUMM) 0.1 Absolute Basophils (0.0 - 0.2 /CUMM) 0 PUBS MCHC (33.0 - 37.0 G/DL) 32.9 L Imaging Results: ct dated 11/08/16 personally reviewed. There are no inflammatory changes. specifically, the gallbladder is nondistended and without pericholecystic fluid. ultrasound shows a polyp, gallstone and no inflammation. normal cbd. Assessment/Plan Assessment/Plan Gallstones. I do not feel that his recent hepatitis is due to biliary pathology. There is no evidence for choledocholithiasis (that is the only way a gallstone could cause such a rise in LFT). There is no urgency to perform laparoscopic cholecystectomy. Unclear if any of his abdominal pain is due to gallstone disease such as intermittent biliary colic. From a hepatic standpoint, the elevation of LFT is most likely due to medication /supplements and/or VILLANUEVA. Defer to GI for workup. Although I could certainly obtain a liver biopsy at the time of cholecystectomy, it can also be performed independent of surgery via IR. Tentatively I have him scheduled for lap jonathon with liver biopsy on Tuesday 11/14. Patient is informed the risk of the operation including bleeding infection, conversion to open and bile duct injury requiring further surgery. He is informed the risks of postcholecystectomy diarrhea. He agrees to proceed Consult Acknowledgment - Thank you for your consult request.
--- NOTE | 2016-11-12 11:20 | NUR ---
PT ON RA O2@ 92%, AMBULATED PATIENT AROUND UNIT X1 ON RA O2 @ 92%. MD JOE NULL.
[2016-11-12 14:01] VITALS: BP 138/62
--- NOTE | 2016-11-12 14:34 | PN- General Surgery ---
Surgical Brief Attending Note Brief Attending Note: Change of plans. OR scheduled for tomorrow, 11/13 at noon. NPO after midnight.
--- NOTE | 2016-11-12 16:18 | NUR ---
PT HAD SCANT AMOUNT OF BRIGHT RED BLOOD IN STOOL, MAC NOTIFIED.
[2016-11-12 23:36] VITALS: BP 114/74
[2016-11-13 06:48] VITALS: BP 128/70
--- NOTE | 2016-11-13 07:34 | PN- Housestaff ---
GRAZYNA WATTS 11/13/16 0734: Subjective Follow-up For: Transaminitis Cholelithiasis Right red blood per rectum Subjective: Patient seen and examined. He is nothing by mouth for possible cholecystectomy today in the afternoon. Patient had a bowel movement yesterday after stool softeners. He reports of scant bright red blood with his bowel movement. Review of Systems Constitutional: Reports: see HPI. Objective Last 24 Hrs of Vital Signs/I&O Vital Signs Date Time Temp Pulse Resp B/P Pulse O2 O2 Flow FiO2 Ox Delivery Rate 11/13 0648 97.7 74 20 128/70 93 Room Air 11/12 2336 98.2 88 20 114/74 95 Room Air 11/12 1401 97.8 99 20 138/62 96 Room Air Intake & Output 11/13 1600 11/13 0800 11/13 0000 Intake Total 600 800 Output Total Balance 600 800 Intake, IV 600 Intake, Oral 800 Physical Exam General Appearance: Alert, Oriented X3, Cooperative Skin: No Rashes HEENT: Atraumatic Neck: Supple Cardiovascular: Regular Rate, Normal S1, Normal S2 Lungs: Clear to Auscultation, Normal Air Movement Abdomen: Normal Bowel Sounds, Soft, slight tenderness to palpation in right upper quadrant Neurological: Normal Speech Extremities: No Edema Current Medications: Current Medications Sig/Yesica Start time Last Medication Dose Route Stop Time Status Admin Bisacodyl 10 MG ONCE ONE 11/12 1530 DC OR 11/12 1531 Diphenhydramine HCl 25 MG Q6P PRN 11/09 0015 DC IV Levothyroxine Sodium 0.1 MG DAILY 11/12 1000 AC 11/13 PO 0854 Lorazepam 0.25 MG ONE ONE 11/13 1999 DC 11/12 PO 11/12 Lorazepam 0.5 MG Q12P PRN 11/09 0030 DC 11/12 IV 1013 Morphine Sulfate 2 MG Q4P PRN 11/09 0015 DC 11/12 IV 1015 Naphazoline HCl/ 2 GTT 4 TIMES/DAY 11/09 1930 AC 11/09 Pheniramine Maleate OPH 2116 Omeprazole 40 MG DAILY AC 11/10 0700 AC 11/12 PO 0529 Ondansetron HCl 4 MG Q8P PRN 11/12 1030 AC PO Ondansetron HCl 4 MG Q6P PRN 11/09 0015 DC 11/09 IV 0744 Polyethylene Glycol 17 GM DAILY PRN 11/12 1030 AC PO Senna/Docusate Sodium 2 TAB DAILY PRN 11/12 1030 AC PO Sodium Chloride 1,000 ML Q13H 11/12 2215 AC 11/12 IV 2222 Last 24 Hrs of Lab/Michael Results Last 24 Hrs of Labs/Mics: Laboratory Tests 11/13/16 0805: CBC w Diff NO MAN DIFF REQ, RBC 4.34 L, MCV 81.8, MCH 26.6 L, RDW 15.5 H, MPV 7.7, Gran % 52.8, Lymphocytes % 30.3, Monocytes % 11.0 H, Eosinophils % 5.3 H, Basophils % 0.6, Absolute Granulocytes 2.7, Absolute Lymphocytes 1.6, Absolute Monocytes 0.6, Absolute Eosinophils 0.3, Absolute Basophils 0, PUBS MCHC 32.5 L 11/13/16 0625: Anion Gap 10, Estimated GFR > 60, BUN/Creatinine Ratio 12.5, Total Bilirubin 0.6 , Direct Bilirubin 0.4, AST 37, ALT 323 H, Alkaline Phosphatase 46, Total Protein 6.5, Albumin 3.7 11/12/16 1031: Urine Color YEL, Urine Clarity CLEAR, Urine pH 7.5, Ur Specific [place] 1.010, Urine Protein NEG, Urine Ketones NEG, Urine Nitrite NEG, Urine Bilirubin NEG, Urine Urobilinogen 0.2, Ur Leukocyte Esterase NEG, Ur Microscopic EXAM NOT REQUIRED, Urine Hemoglobin NEG, Urine Glucose NEG Assessment/Plan Assessment: Patient is 41 year old morbidly obese M with h/o Preston's thyroiditis w/ hypothyroidism, schizophrenia, arthritis, prediabetes, transaminitis that has been worked up in the past and 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 He was seen in the ER the night prior to admission for nausea and vomiting and was sent home on Zofran. Patient states that he has not used alcohol for past 60 days and prior to that he was consuming several packs a month. Patient has been recently on herbal medications including turmeric, milk thistle and dandelion tea. Patient denied any Tylenol use. He is not sexually active for 4-5 yrs now. Family h/o hemochromatosis in a cousin. Outpatient workup for transaminitis (LFTs trending up since 2013) serum copper and ceruloplasmin levels normal, Abd ultrasound showed normal liver architecture , and gallbladder polyps. Labs and vitals as above Monospot negative. CT abd/pelvis: hepatic steatosis, no hepatic mass lesions. CXR negative for any consolidation/effusion EGD on 11/10/16 1. LA grade A reflux esophagitis. 2. Nonerosive gastritis duodenitis status post antral biopsies. Acute liver injury/ transaminitis On admission patient had elevated liver enzymes along with elevated INR. His LFTs are trending down. Patient is awake and alert there is no evidence of hepatic encephalopathy. Gastroenterology consult service is on board. Patient was started on NAC on 11/10/16 however it was not repeated per GI recommendations. His hepatitis panel is nonreactive, HIV nonreactive, infectious mononucleosis negative Patient's IMELDA negative, anti-smooth muscle antibody pending, alpha 1 antitrypsin level pending, copper level normal, ceruloplasmin level pending, haptoglobin 125 Patient has LDH elevated to 2363 Cholelithiasis Ultrasound abdomen was significant for gallstones. Patient was evaluated by Dr. Flores on 11/12/16, patient has been kept nothing by mouth for possible surgery today Possible upper GI bleed. No active bleeding currently. EGD revealed grade a reflux esophagitis. Patient is advised to keep off NSAIDs. He will be maintained on Prilosec 40 mg daily Monitoring for alcohol detox Patient was maintained on CIWA and when necessary Ativan however his CIWA was discontinued DVT ppx Alps. Full code. Problem List: 1. Transaminitis 2. Elevated liver enzymes Pain Ratin Pain Location: right upper quadrant Pain Goal: Pain 4 or less Pain Plan: tylenol prn for pain Tomorrow's Labs & Rationales: cbc andrewp SUE ROSS,LYDIA 11/13/16 1014: Attending MD Review Statement Attending Statement Attending MD Statement: examined this patient, discuss w/resident/PA/COLOR STRIPPER, agreed w/resident/PA/COLOR STRIPPER, reviewed EMR data (avail), discussed with nursing, discussed with case mgmt, amended to note Attending Assessment/Plan: Patient seen and examined. Lying in bed and not in acute distress. Complains of left-sided chest pain. He states that the pain is sharp in nature, nonradiating about 7/10 in intensity. Denies shortness of breath. Denies cough. He states that since the pain is chronic. I did speak with his harness worker Nia Soares MD. Patient had a suboptimal exercise stress test in 2013. He subsequently had a nuclear stress test in 2014 that showed no evidence of ischemia. Chest pain at that time was atypical. His current pain is atypical as well her current address and not associated with exertion. He had similar pain a few days ago that was relieved with Ativan. His EKG 2 days ago and today shows no evidence of ischemia or infarction. He has had negative cardiac enzymes during this admission. His harness worker has cleared him to proceed with the planned surgery today. On exam is not in any distress. Lungs are clear to auscultation bilaterally. Heart sounds are regular. Abdomen is obese but soft and nontender with normal bowel sounds. He denies any further suprapubic pain. He did move his bowels yesterday after a bowel regimen. Recommendations: -There are no medical contraindications to patient proceeding with laparoscopic cholecystectomy and liver biopsy today. -Continue his home regimen of Ativan 0.5 mg orally twice daily postsurgery. -Anticipate discharge in the next 24 hours if cleared by the surgical service.
[2016-11-13 08:33] LABS: ABSOLUTE BASOPHIL COUNT 0 /CUMM (0.0-0.2); ABSOLUTE EOSINOPHIL COUNT 0.3 /CUMM (0.0-0.7); ABSOLUTE GRANULOCYTE CT 2.7 /CUMM (1.4-6.5); ABSOLUTE LYMPH COUNT 1.6 /CUMM (1.2-3.4); ABSOLUTE MONOCYTE COUNT 0.6 /CUMM (0.10-0.60); BASOPHIL % 0.6 % (0.0-2.0); EOSINOPHIL % 5.3 % (0-5); GRANULOCYTE % 52.8 % (42.2-75.2); HEMATOCRIT 35.5 % (42-52); MEAN CORPUSCULAR HGB 26.6 PG (27.0-31.0); MEAN CORPUSCULAR HGB CONC 32.5 G/DL (33.0-37.0); MEAN CORPUSCULAR VOLUME 81.8 FL (80.0-94.0); MEAN PLATELET VOLUME 7.7 FL (7.4-10.4); PLATELET COUNT 203 /CUMM (130-400); RBC DISTRIBUTION WIDTH 15.5 % (11.5-14.5); RED BLOOD CELL CT 4.34 /CUMM (4.70-6.10); WHITE BLOOD CELL COUNT 5.1 /CUMM (4.8-10.8)
--- NOTE | 2016-11-13 12:26 | PN- General Surgery ---
Surgical Brief Attending Note Brief Attending Note: surgery postponed until tomorrow. Delay in OR prohibited surgery today.
[2016-11-13 14:41] VITALS: BP 138/80
[2016-11-13 22:10] VITALS: BP 136/84
[2016-11-14 06:40] VITALS: BP 130/74
--- NOTE | 2016-11-14 07:25 | PN- Housestaff ---
GRAZYNA WATTS 11/14/16 0725: Subjective Follow-up For: Transaminitis Cholelithiasis Right red blood per rectum Subjective: Patient seen and examined. Patient is going for surgery today at 11:45 AM. Patient's all medications are DC'd by Monisha from surgical team will follow up with her. Vitals stable. Labs are stable. LFTs are trending down Patient reports that his pelvic pain has improved. Review of Systems Constitutional: Reports: see HPI. Objective Last 24 Hrs of Vital Signs/I&O Vital Signs Date Time Temp Pulse Resp B/P Pulse O2 O2 Flow FiO2 Ox Delivery Rate 11/14 0640 97.7 79 20 130/74 95 11/13 2210 97.7 84 20 136/84 96 11/13 1441 98.5 79 20 138/80 97 Room Air Intake & Output 11/14 1600 11/14 0800 11/14 0000 Intake Total 600 250 Output Total Balance 600 250 Intake, IV 600 10 Intake, Oral 240 Number 1 Bowel Movements Physical Exam General Appearance: Alert, Oriented X3, Cooperative, No Acute Distress Skin: No Rashes HEENT: Atraumatic Neck: Supple Lymphatic: Axillary nl Cardiovascular: Normal S1, Normal S2 Lungs: Normal Air Movement Abdomen: Normal Bowel Sounds, Soft, No Tenderness Neurological: Normal Tone Extremities: No Edema Assessment/Plan Assessment: Patient is 41 year old morbidly obese M with h/o Preston's thyroiditis w/ hypothyroidism, schizophrenia, arthritis, prediabetes, transaminitis that has been worked up in the past and 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 He was seen in the ER the night prior to admission for nausea and vomiting and was sent home on Zofran. Patient states that he has not used alcohol for past 60 days and prior to that he was consuming several packs a month. Patient has been recently on herbal medications including turmeric, milk thistle and dandelion tea. Patient denied any Tylenol use. He is not sexually active for 4-5 yrs now. Family h/o hemochromatosis in a cousin. Outpatient workup for transaminitis (LFTs trending up since 2013) serum copper and ceruloplasmin levels normal, Abd ultrasound showed normal liver architecture , and gallbladder polyps. Labs and vitals as above Monospot negative. CT abd/pelvis: hepatic steatosis, no hepatic mass lesions. CXR negative for any consolidation/effusion EGD on 11/10/16 1. LA grade A reflux esophagitis. 2. Nonerosive gastritis duodenitis status post antral biopsies. Acute liver injury/ transaminitis On admission patient had elevated liver enzymes along with elevated INR. His LFTs are trending down. Patient is awake and alert there is no evidence of hepatic encephalopathy. Gastroenterology consult service is on board. Patient was started on NAC on 11/10/16 however it was not repeated per GI recommendations. His hepatitis panel is nonreactive, HIV nonreactive, infectious mononucleosis negative Patient's IMELDA negative, anti-smooth muscle antibody normal, alpha 1 antitrypsin level is slightly elevated to 210, copper level normal, ceruloplasmin level normal, haptoglobin 125 Patient has LDH elevated to 2363 Cholelithiasis Ultrasound abdomen was significant for gallstones. Patient was evaluated by Dr. Flores on 11/12/16, patient has been kept nothing by mouth for possible surgery today Plan is for liver biopsy at the same time. Possible upper GI bleed No active bleeding currently. EGD revealed grade a reflux esophagitis. Patient is advised to keep off NSAIDs. He will be maintained on Prilosec 20 mg daily Monitoring for alcohol detox Patient was maintained on CIWA and when necessary Ativan however his CIWA was discontinued DVT ppx Alps. Full code. Problem List: 1. Transaminitis 2. Elevated liver enzymes Pain Ratin Pain Location: Abdomen Pain Goal: Pain 4 or less Pain Plan: tylenol prn for pain Tomorrow's Labs & Rationales: lfts cbc SUE ROSS,LYDIA 11/14/16 0848: Attending MD Review Statement Attending Statement Attending MD Statement: examined this patient, discuss w/resident/PA/GEOPHYSICAL PROSPECTOR, agreed w/resident/PA/GEOPHYSICAL PROSPECTOR, reviewed EMR data (avail), discussed with nursing, discussed with case mgmt, amended to note Attending Assessment/Plan: Patient seen and examined. Resting comfortably not in any acute distress. Denies nausea vomiting. Denies abdominal pain. Reported a bowel movement yesterday. He is afebrile hemodynamically stable. He is scheduled to go to work today for laparoscopic cholecystectomy. Liver biopsy will be done at the same time to evaluate his transaminitis. On examination abdomen is soft and nontender with normal bowel sounds. Problems: 1. Transaminitis; likely medication induced. 2. Cholelithiasis; query symptomatic 3. Anxiety disorder; on chronic benzodiazepine therapy as needed 4. Atypical chest pain; resolved. Status post negative nuclear stress test in 2014. Plan: -Patient is scheduled to undergo laparoscopic cholecystectomy today. He will also have liver biopsy done for evaluation of his transaminitis. -If stable overnight may be discharged home tomorrow. -Patient should follow-up with the gastroenterology service as an outpatient for results of liver biopsy. -Continue benzodiazepine therapy for his chronic anxiety disorder. -In no longer complains of chest pain today. EKG done this admission showed no evidence of ischemia. Cardiac enzymes are negative. No further cardiac workup required at present. -Statin therapy has been discontinued. He has been advised to avoid use of herbal therapy as an outpatient. His triglyceride and LDL levels are currently within goal. Advised weight loss to improve HDL levels. No need for lipid- lowering medication therapy for now. -Please refer patient to the lifestyle clinic as an outpatient upon discharge.
--- NOTE | 2016-11-14 08:07 | NUR ---
Referral received on 11/12/16 via flora experience manager business process. This patient is a 41 year old man, admitted to the hospital on 11/08/16 with a GI bleed. Patient with significant past medical and psychiatric history. Reason for referral was to assist patient with the executin of a Living Will. I met with Marty twice to discuss this topic. Initially, he needed some clarification regarding the "terminally ill" or "permanent vegetative state" clause. I discussed the process, and returned yesterday to meet with him and a Living Will was executed. Document scanned into EHR. Patient scheduled for OR today. Please call me if other social work needs arise.
--- NOTE | 2016-11-14 13:18 | Patient Discharge Instructions ---
Discharge Instructions General Discharge Information You were seen/treated for: Elevated liver enzymes Gallstones You had these procedures: Esophagogastroduodenoscopy (EGD) with biopsy (11/10/16) Laparoscopic cholecystectomy (11/14/16) Liver biopsy (11/14/16) Watch for these problems: Fever or chills Nausea or vomiting Yellowing of your skin or eyes Redness or swelling around your incision sites or pus from the incision Pale or krishna-colored stools Special Instructions: Please follow up with your PCP upon discharge. Please follow up with Dr. Flores upon discharge. Please follow up with gastroenterology service as an outpatient for results of liver biopsy. [place] have LFTs checked within two weeks of discharge after continuation of Risperidone. Diet Recommended Diet: Low Fat Activity Full Activity/No Limits: Yes Acute Coronary Syndrome Inclusion Criteria At DC or during hospital stay patient has or had the following: ACS DIAGNOSIS No Discharge Core Measures Meds if any: Prescribed or Continued at Discharge Meds if any: NOT Prescribed or Continued at Discharge Congestive Heart Failure Inclusion Criteria At DC or during hospital stay patient has or had the following: CHF DIAGNOSIS No Discharge Core Measures Meds if any: Prescribed or Continued at Discharge Meds if any: NOT Prescribed or Continued at Discharge Cerebrovascular accident Inclusion Criteria At DC or during hospital stay patient has or had the following: CVA/TIA Diagnosis No Discharge Core Measures Meds if any: Prescribed or Continued at Discharge Meds if any: NOT Prescribed or Continued at Discharge Venous thromboembolism Inclusion Criteria VTE Diagnosis No VTE Type NONE VTE Confirmed by (Test) NONE Discharge Core Measures - Per Current guidelines, there needs to be overlap - treatment for the first 5 days of Warfarin therapy. - If discharged on Warfarin prior to 5 days of - overlap therapy, the patient will need to be - assessed for post discharge needs including - *Post discharge parental anticoagulation - *Warfarin and/or parental anticoagulation education - *Follow up date to check INR post discharge At least 5 days overlap therapy as Inpatient No Meds if any: Prescribed or Continued at Discharge Note: Overlap Therapy is Warfarin and Anticoagulant Meds if any: NOT Prescribed or Continued at Discharge
[2016-11-14] MEDS ORDERED: OXYCODONE HCL5 M1 PO (14:08)
--- NOTE | 2016-11-14 15:03 | Operative Report ---
Operative/Inv Procedure Report Surgery Date: 11/14/16 Name of Procedure: 1. Laparoscopic cholecystectomy 2. Needle biopsy liver Pre-Operative Diagnosis: 1. Gallstones 2. Hepatitis Post-Operative Diagnosis: Same Estimated Blood Loss: scant Surgeon/Sueding Machine Tender: Marcello Flores M.D./Monisha TABOR Anesthesia: general endotracheal tube Specimens: Gallbladder and liver tissue Operative/Procedure Note Note: After consent the patient is brought to the operating room laid supine. General anesthesia was obtained and the patient's abdomen was prepped and draped. Skin in the periumbilical region was able to local anesthesia. A curvilinear incision was made sharply. We dissected down to the fascia bluntly and grasped with Braydon's. A fasciotomy was created sharply and stay sutures placed. A blunt Bardales port was placed. Pneumoperitoneum was achieved. 3, 5 mm ports were placed in the epigastrium and right upper quadrant after local anesthesia was instilled and under direct vision the camera. Patient was placed in reverse Trendelenburg and rotated towards the left. Gallbladder is identified in the right upper quadrant. It was grasped at the dome and retracted towards the head. There were numerous dense adhesions which were taken down with cautery and blunt dissection. Eventually we got down to Smith's pouch which was grasped and retracted laterally. The peritoneum overlying the triangle of Calot was then taken down with cautery. The triangle was dissected free with blunt and cautery dissection. The artery was medial and its normal anatomic position. It was dissected free. The triangle was then cleared of areolar tissue with cautery and blunt dissection. Once the duct and artery were isolated, these structures were doubly ligated with clips. The gallbladder is removed from the fossa electrocautery. His placed and 2 in Endo Catch bag and cinched up. The right upper quadrant was then reexplored and hemostasis achieved with cautery. Next core liver biopsy of the liver was obtained using a 18-gauge Dustin-Cut needle. 2 cores were taken on the edge of the liver just medial to the gallbladder fossa. Hemostasis was achieved cautery. Right upper quadrant was and suction irrigated normal saline. Hemostasis was adequate. Ports were then removed, gallbladder delivered and passed off the field. The fascia was closed with 0 Vicryl suture. Skin incisions closed with 4-0 Vicryl. Steri-Strips and sterile dressing applied. Sponge and needle counts are correct CC: SKYLER ROSS,PATT Pruitt
--- NOTE | 2016-11-14 16:02 | NUR ---
12:15-PT LEFT FLOOR VIA STRETCHER TO OR
[2016-11-14 16:30] VITALS: BP 118/76
--- NOTE | 2016-11-14 16:37 | PN- General Surgery ---
Subjective Subjective: S/P lap jonathon with liver biopsy. Resting at side of bed. No complaints of nausea presently (nauseated in PACU, received Zofran), vomiting, fever, chills, CP/SOB. Ambulating well. Has yet to void. Objective Vital Signs and I&Os Vital Signs Date Time Temp Pulse Resp B/P Pulse O2 O2 Flow FiO2 Ox Delivery Rate 11/14 0640 97.7 79 20 130/74 95 11/13 2210 97.7 84 20 136/84 96 Intake & Output 11/14 1600 11/14 0800 11/14 0000 11/13 1600 11/13 0800 11/13 0000 Intake Total 630 600 250 855 600 800 Output Total 500 Balance 130 600 250 855 600 800 Intake, IV 600 600 10 375 600 Intake, Oral 30 240 480 800 Number 1 0 Bowel Movements Output, Urine 500 Physical Exam: Gen:AAOx3 in NAD Cor: S1+S2+ Lungs: CTA amor Abd: soft, NT, ND, +BS x4. Dressings C/D/I. No surrounding erythema or drainage noted. Ext: no edema or calf tenderness to amor lower extremities. Current Medications: Current Medications Sig/Yesica Start time Last Medication Dose Route Stop Time Status Admin Docusate Sodium 100 MG BID PRN 11/14 1515 AC PO Gabapentin 300 MG DAILY 11/15 1000 AC PO Gabapentin 300 MG DAILY 11/13 1559 DC 11/13 PO 1719 Levothyroxine Sodium 0.1 MG DAILY 11/15 1000 AC PO Levothyroxine Sodium 0.1 MG DAILY 11/12 1000 DC 11/14 PO 0827 Lorazepam 0.5 MG DAILY PRN 11/14 1515 AC PO 11/21 1514 Lorazepam 0.5 MG DAILY PRN 11/13 1330 DC PO 11/20 1329 Morphine Sulfate 2 MG Q4-6 PRN PRN 11/14 1515 AC IV Naphazoline HCl/ 2 GTT 4 TIMES/DAY 11/14 1800 DC Pheniramine Maleate OPH Naphazoline HCl/ 2 GTT 4 TIMES/DAY 11/14 1800 AC Pheniramine Maleate OPH Naphazoline HCl/ 2 GTT FOUR TIMES A DAY PRN 11/14 1515 CAN Pheniramine Maleate OPH Naphazoline HCl/ 2 GTT 4 TIMES/DAY 11/09 1930 DC 11/09 Pheniramine Maleate OPH 211 Omeprazole 40 MG DAILY AC 11/15 0700 AC PO Omeprazole 40 MG DAILY AC 11/10 0700 DC 11/12 PO 0529 Ondansetron HCl 4 MG Q8P PRN 11/14 1515 AC PO Ondansetron HCl 4 MG ONCE ONE 11/14 1045 DC 11/14 IV 11/14 1046 1036 Ondansetron HCl 4 MG Q8P PRN 11/12 1030 DC PO Oxycodone HCl 5 MG Q4-6 PRN PRN 11/14 1515 AC PO Oxycodone HCl 10 MG Q4-6 PRN PRN 11/14 1515 AC PO Pantoprazole Sodium 40 MG ONCE ONE 11/14 1045 DC 11/14 IV 11/14 1046 1148 Patient Medication 1 ED .STK-MED ONE 11/14 1335 DC Teaching ED 11/14 1336 Polyethylene Glycol 17 GM DAILY PRN 11/14 1515 AC PO Polyethylene Glycol 17 GM DAILY PRN 11/12 1030 DC PO Senna/Docusate Sodium 2 TAB DAILY PRN 11/14 1515 AC PO Senna/Docusate Sodium 2 TAB DAILY PRN 11/12 1030 DC PO Sodium Chloride 1,000 ML Q13H 11/14 1515 AC IV Sodium Chloride 1,000 ML Q13H 11/13 2345 DC 11/14 IV 1152 Results Last 48 Hours of Labs: Laboratory Tests 11/14 11/13 11/13 0615 0805 0625 Chemistry Sodium (137 - 145 mmol/L) 135 L 139 Potassium (3.5 - 5.1 mmol/L) 4.3 4.0 Chloride (98 - 107 mmol/L) 101 103 Carbon Dioxide (22 - 30 mmol/L) 25 26 Anion Gap (5 - 16) 8 10 BUN (9 - 20 mg/dL) 9 10 Creatinine (0.7 - 1.2 mg/dL) 0.8 0.8 Estimated GFR (>60 ml/min) > 60 > 60 BUN/Creatinine Ratio (7 - 25 %) 11.3 12.5 Total Bilirubin (0.2 - 1.3 mg/dL) 0.6 0.6 Direct Bilirubin (< 0.4 mg/dL) 0.5 H 0.4 AST (17 - 59 U/L) 28 37 ALT (21 - 72 U/L) 240 H 323 H Alkaline Phosphatase (< 127 U/L) 52 46 Total Protein (6.3 - 8.2 g/dL) 6.6 6.5 Albumin (3.5 - 5.0 g/dL) 3.9 3.7 Hematology CBC w Diff NO MAN DIFF REQ WBC (4.8 - 10.8 /CUMM) 5.1 RBC (4.70 - 6.10 /CUMM) 4.34 L Hgb (14.0 - 18.0 G/DL) 11.5 L Hct (42 - 52 %) 35.5 L MCV (80.0 - 94.0 FL) 81.8 MCH (27.0 - 31.0 PG) 26.6 L RDW (11.5 - 14.5 %) 15.5 H Plt Count (130 - 400 /CUMM) 203 MPV (7.4 - 10.4 FL) 7.7 Gran % (42.2 - 75.2 %) 52.8 Lymphocytes % (20.5 - 51.1 %) 30.3 Monocytes % (1.7 - 9.3 %) 11.0 H Eosinophils % (0 - 5 %) 5.3 H Basophils % (0.0 - 2.0 %) 0.6 Absolute Granulocytes (1.4 - 6.5 /CUMM) 2.7 Absolute Lymphocytes (1.2 - 3.4 /CUMM) 1.6 Absolute Monocytes (0.10 - 0.60 /CUMM) 0.6 Absolute Eosinophils (0.0 - 0.7 /CUMM) 0.3 Absolute Basophils (0.0 - 0.2 /CUMM) 0 PUBS MCHC (33.0 - 37.0 G/DL) 32.5 L Assessment/Plan Assessment/Plan A: 41 year old male s/p lap jonathon/liver biopsy; AVSS. Plan: Advance diet as tolerated- clears tonight, low fat diet in am. Can stop IVF, defer to medical team. D/C per primary team. Patient to follow up with Dr. Flores 2 weeks post- operatively.
--- NOTE | 2016-11-14 17:49 | NUR ---
1630- PT RETURNED TO FLOOR FROM PACU. REPORT RECEIVED FROM [place], [place]. PT HAD LAPAROSCOPIC CHOLECYSTECTOMY AND LIVER BIOPSY. 1 LARGE BANDAID TO UMBILICAL AREA AND 3 SMALL BANDAIDS TO ABDOMINAL AREA. DRESSINGS WITH SCANT BLOODY DRAINAGE. VSS. LUNGS CTA. BOWEL SOUNDS HYPOACTIVE. PT A/V/OX3.
[2016-11-14 20:35] VITALS: BP 122/70
[2016-11-14 21:44] VITALS: BP 122/70
[2016-11-15 00:53] VITALS: BP 124/68
[2016-11-15 06:00] VITALS: BP 120/76
--- NOTE | 2016-11-15 08:22 | PN- Housestaff ---
STACIE ROSS,IMGE 11/15/16 0821: Subjective Follow-up For: Transaminitis Cholelithiasis Subjective: No acute events overnight. Patient seen and examined this morning. He feels well and has no complaints. He reports pain at the incision sites but it is well- controlled with pain medications. He has tolerated regular diet for breakfast without nausea or vomiting. He has been ambulating without difficulty. Review of Systems Constitutional: Reports: see HPI. Objective Last 24 Hrs of Vital Signs/I&O Vital Signs Date Time Temp Pulse Resp B/P Pulse O2 O2 Flow FiO2 Ox Delivery Rate 11/15 0600 98.6 90 20 120/76 95 Room Air 11/15 0053 98.1 91 20 124/68 96 Room Air 11/14 2144 98.7 102 20 122/70 97 11/14 2035 98.6 85 20 122/70 96 11/14 1630 97.7 86 18 118/76 97 Room Air 11/14 1630 97.7 86 18 118/76 97 Room Air Intake & Output 11/15 1600 11/15 0800 11/15 0000 Intake Total 200 700 Output Total 950 Balance 200 -250 Intake, Oral 200 700 Output, Urine 950 Physical Exam General Appearance: Alert, Oriented X3, No Acute Distress HEENT: Atraumatic, Mucous Membr. moist/pink Neck: Supple Cardiovascular: Regular Rate, Normal S1, Normal S2, No Murmurs, Gallops, Rubs Lungs: Clear to Auscultation Abdomen: Soft, Tenderness to Palpation Around Incision Sites, Positive Bowel Sounds Extremities: No Clubbing, No Cyanosis, No Edema Current Medications: Current Medications Sig/Yesica Start time Last Medication Dose Route Stop Time Status Admin Acetaminophen 1,000 MG .STK-MED ONE 11/14 1322 DC IV 11/14 1323 Docusate Sodium 100 MG BID PRN 11/14 1515 DCD PO Fentanyl Citrate 200 MCG .STK-MED ONE 11/14 1322 DC IM 11/14 1323 Gabapentin 300 MG DAILY 11/15 1000 DCD 11/15 PO 0944 Gabapentin 300 MG DAILY 11/13 1559 DC 11/13 PO 1719 Hydromorphone HCl 2 MG .STK-MED ONE 11/14 1551 DC IM 11/14 1552 Hydromorphone HCl 2 MG .STK-MED ONE 11/14 1519 DC IM 11/14 1520 Hydromorphone HCl 2 MG .STK-MED ONE 11/14 1411 DC IM 11/14 1412 Levothyroxine Sodium 0.1 MG DAILY 11/15 1000 DCD 11/15 PO 0603 Levothyroxine Sodium 0.1 MG DAILY 11/12 1000 DC 11/14 PO 0827 Lorazepam 0.5 MG DAILY PRN 11/14 1515 DCD PO 11/21 1514 Lorazepam 0.5 MG DAILY PRN 11/13 1330 DC PO 11/20 1329 Midazolam HCl 2 MG .STK-MED ONE 11/14 1322 DC IM 11/14 1323 Morphine Sulfate 2 MG Q4-6 PRN PRN 11/14 1515 DCD 11/14 IV 2222 Naphazoline HCl/ 2 GTT 4 TIMES/DAY 11/14 1800 DC Pheniramine Maleate OPH Naphazoline HCl/ 2 GTT 4 TIMES/DAY 11/14 1800 DCD Pheniramine Maleate OPH Naphazoline HCl/ 2 GTT FOUR TIMES A DAY PRN 11/14 1515 CAN Pheniramine Maleate OPH Naphazoline HCl/ 2 GTT 4 TIMES/DAY 11/09 1930 DC 11/09 Pheniramine Maleate OPH 2116 Omeprazole 40 MG DAILY AC 11/15 0700 DCD 11/15 PO 0602 Omeprazole 40 MG DAILY AC 11/10 0700 DC 11/12 PO 0529 Ondansetron HCl 4 MG Q8P PRN 11/14 1515 DCD PO Ondansetron HCl 4 MG Q8P PRN 11/12 1030 DC PO Oxycodone HCl 5 MG Q4-6 PRN PRN 11/14 1515 DCD PO Oxycodone HCl 10 MG Q4-6 PRN PRN 11/14 1515 DCD 11/15 PO 0444 Patient Medication 1 ED .STK-MED ONE 11/14 1335 DC Teaching ED 11/14 1336 Polyethylene Glycol 17 GM DAILY PRN 11/14 1515 DCD PO Polyethylene Glycol 17 GM DAILY PRN 11/12 1030 DC PO Senna/Docusate Sodium 2 TAB DAILY PRN 11/14 1515 DCD PO Senna/Docusate Sodium 2 TAB DAILY PRN 11/12 1030 DC PO Sodium Chloride 1,000 ML Q13H 11/14 1515 DC 11/14 IV 1638 Sodium Chloride 1,000 ML Q13H 11/13 2345 DC 11/14 IV 1152 Last 24 Hrs of Lab/Michael Results Last 24 Hrs of Labs/Mics: Laboratory Tests 11/15/16 0605: Total Bilirubin 0.8, Direct Bilirubin 0.4, AST 33, ALT 193 H, Alkaline Phosphatase 51, Total Protein 6.7, Albumin 3.8 Assessment/Plan Assessment: 41 y/o morbidly obese M with PMHx of transaminitis, Preston's thyroiditis and schizophrenia who presents with RUQ pain and coffee-ground emesis. #Transaminitis: Likely, medication-induced. S/p liver biopsy yesterday. LFTs have been improving but ALT still elevated, AST/ALT 33/193 today. * Patient will continue risperidone on discharge. He will have LFTs checked on and forward results to his PCP. * Patient was instructed to follow up with GI as outpatient for his liver biopsy results. * Patient was referred to [facility] on discharge. #Cholelithiasis: S/p laparoscopic cholecystectomy and liver biopsy yesterday. Has tolerated regular diet. Post-operative pain well-controlled. * Patient was instructed to follow up with surgeon Dr. Flores on discharge. * Prescription provided for 15-tab supply of Oxycodone 5 mg to be taken up to 2 pills Q6H for abdominal pain. #GERD: S/p endoscopy with reflux esophagitis and nonerosive gastritis and duodenitis. * Patient will continue taking omeprazole 20 mg PO daily on discharge. Diet: Low fat diet DVT PPx: ALPs CODE: FULL Problem List: 1. Transaminitis 2. Cholelithiasis 3. S/P laparoscopic cholecystectomy 4. GERD (gastroesophageal reflux disease) Pain Ratin Pain Location: Incision sites Pain Goal: Remain pain free Pain Plan: Oxycodone 10 mg PO Q6H PRN Tomorrow's Labs & Rationales: None Discharge Plan Discharge Disposition: home Stable for Discharge? Yes Anticipated Discharge (Day): today ISRAEL BOOTH MD 11/15/16 1331: Attending MD Review Statement Attending Statement Attending Statement: examined this patient, discuss w/resident/PA/BICYCLE MECHANIC, agreed w/resident/PA/BICYCLE MECHANIC, discussed with family, reviewed EMR data (avail), discussed with nursing, discussed with case mgmt, reviewed images, amended to note Attending Assessment/Plan: Sitting comfortably in bed. Has been ambulating without any issues, just has mild discomfort on ambulationat the incision site in the abdomen. Tolerated his regular breakfast well. Patient can be discharged home today. Instruct him to follow up with GI, surgery his primary care physician as an outpatient.
[2016-11-15] MEDS ORDERED: ROXICODONE5 M1 PO (11:00)
[2016-11-15] MEDS ORDERED: OMEPRAZOLE20 M3 PO (11:01)
--- NOTE | 2016-11-19 13:59 | Discharge Summary ---
Visit Information Visit Dates Admission Date: 11/08/16 Discharge Date: 11/15/16 Hospital Course Course Attending Physician: LYDIA ROGERS M.D Primary Care Physician: PATT HOLLAND MD Hospital Course: Patient is 41 year old morbidly obese M with h/o Preston's thyroiditis w/ hypothyroidism, schizophrenia, arthritis, prediabetes, transaminitis that has been worked up in the past and 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 He was seen in the ER the night prior to admission for nausea and vomiting and was sent home on Zofran. Patient states that he has not used alcohol for past 60 days and prior to that he was consuming several packs a month. Patient has been recently on herbal medications including turmeric, milk thistle and dandelion tea. Patient denied any Tylenol use. He is not sexually active for 4-5 yrs now. Family h/o hemochromatosis in a cousin. Outpatient workup for transaminitis (LFTs trending up since 2013) serum copper and ceruloplasmin levels normal, Abd ultrasound showed normal liver architecture , and gallbladder polyps. Monospot negative. CT abd/pelvis: hepatic steatosis, no hepatic mass lesions. CXR negative for any consolidation/effusion EGD on 11/10/16 1. LA grade A reflux esophagitis. 2. Nonerosive gastritis duodenitis status post antral biopsies. Acute liver injury/ transaminitis On admission patient had elevated liver enzymes AST 773, ALT 850+ along with elevated INR. His Risperidone and statin were held. LFTs graduallt started to trend down. Patient remained awake and alert there was no evidence of hepatic encephalopathy. Gastroenterology consult service was on board. Patient was started on NAC on 11/10/16 however it was not repeated per GI recommendations. His hepatitis panel was nonreactive, HIV nonreactive, infectious mononucleosis negative. Patient's IMELDA was negative, anti-smooth muscle antibody normal, alpha 1 antitrypsin level is slightly elevated to 210, copper level normal, ceruloplasmin level normal, haptoglobin 125. Cholelithiasis Ultrasound abdomen was significant for gallstones. Patient was evaluated by Dr. Berry for laproscopic cholecystectomy. Patient had laproscopic cholecystectomy and liver biopsy the same time. He was discharged after that witha follow up with Dr. Berry. Possible upper GI bleed Patient had EGD as inpatient. It revealed grade a reflux esophagitis. Patient was advised to keep off NSAIDs. He was discharged on 20 mg of omeprazole daily. Due to morbid obesity, patient was advised to follow up with [facility] as an out patient. Allergies: Coded Allergies: Penicillins (Intermediate, RASH 11/16/15) Disposition Summary Disposition Principal Diagnosis: Transaminitis Additional Diagnosis: Cholelithiasis Discharge Disposition: home or self care Discharge Instructions General Discharge Information Code Status: Full Code Patient's Diet: regular Patient's Activity: as tolerated Follow-Up Instructions/Appts: Please follow up with PCP upon discharge. Please follow up with [facility] upon discharge. Medications at Discharge Discharge Medications: Stop taking the following medications: Turmeric Root Extract (Turmeric) (Unknown Strength) CAPSULE ORAL as needed for SUPPLEMENT Continue taking these medications: Ondansetron (Zofran Odt) 4 MG TAB.RAPDIS 1 Tablet ORAL EVERY SIX HOURS as needed for NAUSEA Qty = 20 Comments: NOT GIVEN Levothyroxine Sodium (Levothyroxine Sodium) 100 MCG TABLET 1 Tablet ORAL DAILY Qty = 30 Comments: Last Taken: 11/15/16 Time: 06:00 AM Metformin HCl (Metformin HCl) 1,000 MG TABLET 1 Tablet ORAL Every Morning Qty = 30 Comments: NOT GIVEN Lorazepam (Lorazepam) 0.5 MG TABLET 1 Tablet ORAL TWICE DAILY as needed for ANXIETY Qty = 60 Comments: NOT GIVEN Gabapentin (Gabapentin) 300 MG CAPSULE 1 Capsule ORAL DAILY Qty = 60 Comments: Last Taken: 11/15/16 Time: 10:00 AM Atorvastatin Calcium (Atorvastatin Calcium) 20 MG TABLET 1 Tablet ORAL DAILY Qty = 30 Comments: NOT GIVEN Risperidone Microspheres (Risperdal Consta) 25 MG/2 ML SYRINGE 25 Milligram INTRAMUSC EVERY 2 WEEKS Qty = 1 Comments: NOT GIVEN Start taking the following new medications: Oxycodone HCl (Roxicodone) 5 MG TABLET 2 Tablet ORAL EVERY SIX HOURS as needed for PAIN Qty = 15 No Refills Omeprazole (Omeprazole) 20 MG TABLET.DR 1 Tablet ORAL DAILY Qty = 30 No Refills Copies To: THOMAS ROGERS M.D, MD,OTIS BERRY MD,POLLY HOLLAND MDPATT Attending MD Review Statement Documenting Attending: LYDIA ROGERS M.D Other Findings: I have reviewed the discharge summary.
== END 2016-11-15 12:53 | DRG 417 ==
LOC: ENRESERVTM → ENRESERVDT → ERH 18:07 → 2NA 22:54 → ERHI 22:54 → 2NA 11-09 01:01
PROVIDERS: Emergency Medicine; Internal Medicine; Internal Medicine Hematology & Oncology; Student in an Organized Health Care Education/Training Program; ADMIT Student in an Organized Health Care Education/Training Program
PROC: 0DB68ZX Excision of Stomach, Via Natural or Artificial Opening Endoscopic, Diagnostic (ICD-10-PCS; principal; 2016-11-10)
PROC: 0FT44ZZ Resection of Gallbladder, Percutaneous Endoscopic Approach (ICD-10-PCS; 2016-11-14)
PROC: 0FB04ZX Excision of Liver, Percutaneous Endoscopic Approach, Diagnostic (ICD-10-PCS; 2016-11-14)
DX: K80.20 Calculus of gallbladder without cholecystitis without obstruction (principal); K72.00 Acute and subacute hepatic failure without coma; Z68.41 Body mass index [BMI] 40.0-44.9, adult; E06.3 Autoimmune thyroiditis; E11.9 Type 2 diabetes mellitus without complications; D64.9 Anemia, unspecified; E66.01 Morbid (severe) obesity due to excess calories; F20.9 Schizophrenia, unspecified; R74.0 Nonspecific elevation of levels of transaminase and lactic acid dehydrogenase [LDH]; F41.9 Anxiety disorder, unspecified; Z80.1 Family history of malignant neoplasm of trachea, bronchus and lung; Z80.3 Family history of malignant neoplasm of breast; Z83.2 Family history of diseases of the blood and blood-forming organs and certain disorders involving the immune mechanism; Z83.79 Family history of other diseases of the digestive system; E66.9 Obesity, unspecified; K21.0 Gastro-esophageal reflux disease with esophagitis; Z87.891 Personal history of nicotine dependence; Z79.84 Long term (current) use of oral hypoglycemic drugs
CPT/HCPCS: 2NASP; 82103; 82525; 82570; 83516; ERO; 36415; 74178; 80307; 81001; 81003; 82436; 83010; 87389; 88304; 88305; 88307; 88312; 88313; 93005; 93010; 96374; 96375; C9399; G0480; J0131; J0132; J0690; J2405; J3101; J7060

== ENCOUNTER 2017-02-19 11:40 | Emergency (ER) | payer OTHER ==
[~2017-02-19] VITALS: Ht 185.4 cm; Wt 145.2 kg
[~2017-02-19 11:40] MED LIST changes: +ATORVASTATIN CA20 M1 PO; +GABAPENTIN300 M2 PO; +LEVOTHYROXINE100 MC1 PO; +LORAZEPAM0.5 M1 PO; +METFORMIN HCL1000 M1 PO; +OMEPRAZOLE20 M3 PO; +OXYCODONE HCL5 M1 PO; +PROAIR HFA8.5 GM INH; +RISPERDAL25 MG/2 ML IM; +ROXICODONE5 M1 PO; +TURMERIC500 M1 PO
--- NOTE | 2017-02-19 11:56 | ED CARDIAC/CP/PALPITATIONS ---
History of Present Illness General Chief Complaint: Chest Pain Stated Complaint: CP, SOB Source: patient Exam Limitations: no limitations Vital Signs & Intake/Output Vital Signs & Intake/Output Vital Signs Date Time Temp Pulse Resp B/P B/P Pulse O2 O2 Flow FiO2 Mean Ox Delivery Rate 02/19 1356 96.8 69 20 127/59 97 Room Air 02/19 1150 97.0 88 16 122/82 96 Room Air Allergies Coded Allergies: Penicillins (Intermediate, RASH 11/16/15) Reconcile Medications Atorvastatin Calcium 20 MG TABLET 1 TAB PO DAILY CHOLESTEROL (Reported) Gabapentin 300 MG CAPSULE 1 CAP PO DAILY NERVE PAIN (Reported) Levothyroxine Sodium 100 MCG TABLET 1 TAB PO DAILY HASHIMOTOS (Reported) Lorazepam 0.5 MG TABLET 1 TAB PO BID PRN ANXIETY (Reported) Metformin HCl 1,000 MG TABLET 1 TAB PO QAM PRE-DM (Reported) Omeprazole 20 MG TABLET.DR 1 TAB PO DAILY STOMACH HEALTH Risperidone Microspheres (Risperdal Consta) 25 MG/2 ML SYRINGE 25 MG IM Q2W MENTAL HEALTH (Reported) Triage Note: PT STATES HE HAS BEEN FEELING SHAKY AND TIRED FOR THE PAST WEEK. PT STATES HE IS HAVING STOMACH PAIN AND HAD ELEVATED LIVER FUNCTIONS IN OCTOBER. PT STATES SOME MINOR CHEST PAIN NOT BAD. PT STATES SOB FOR THE PAST 2 DAYS AND HAD NO ENERGY. Triage Nurses Notes Reviewed? yes HPI: Patient presents with a weeklong history of intermittent shortness of breath and chest pain with exertion. The symptoms have been getting worse over the past week. Patient states that his shortness of breath has been constant but worse with exertion. He has not woken up at night because of difficulty breathing and there is no orthopnea. There are no fevers or chills. Patient states he'll get a sharp central chest pain with exertion that will last a few seconds and go away. When he has the chest pain he rates it as a 4 out of 10 and elevated his quantitatives is 0 out of 10. There is no radiation of the pain. Patient has only noticed the pain when he exerts himself however he has exerted himself has not had pain. Past History Travel History Traveled to [place] past 21 day No Medical History Any Pertinent Medical History? see below for history Neurological: L LEG NERVE DAMAGE EENT: DRY NOSE WITH NOSE BLEED Cardiovascular: HIGH CHOL Respiratory: bronchitis Gastrointestinal: upper GI bleed Hepatic: FATTY LIVER ELEVATED LIVER ENYZMES Renal: NONE Musculoskeletal: fracture, ARTHRITIS Psychiatric: anxiety, schizophrenia ( Per patient questioning) Endocrine: diabetes, Preston's thyroiditis Blood Disorders: NONE Cancer(s): NONE COLD MEAT CHEF/Reproductive: NONE History of MRSA: No History of VRE: No History of CDIFF: No Surgical History Surgical History: non-contributory, N Psychosocial History Who do you live with Brother Services at Home None What is your primary language French Tobacco Use: Never used ETOH Use: occasional use Illicit Drug Use: denies illicit drug use Family History Family History, If Any: Relation not specified for: FH: hemochromatosis Hx Contributory? No Review of Systems Review of Systems Constitutional: Reports: no symptoms. EENTM: Reports: no symptoms. Respiratory: Reports: see HPI, short of breath. Cardiovascular: Reports: see HPI, chest pain. GI: Reports: no symptoms. Genitourinary: Reports: no symptoms. Musculoskeletal: Reports: no symptoms. Skin: Reports: no symptoms. Neurological/Psychological: Reports: no symptoms. Hematologic/Endocrine: Reports: no symptoms. Immunologic/Allergic: Reports: no symptoms. All Other Systems: Reviewed and Negative Physical Exam Physical Exam General Appearance: well developed/nourished, alert, awake, anxious, mild distress Head: atraumatic, normal appearance Eyes: Bilateral: PERRL, EOMI. Ears, Nose, Throat: normal pharynx, normal ENT inspection, hearing grossly normal Neck: normal inspection, supple, full range of motion Respiratory: normal breath sounds, chest non-tender, no respiratory distress, lungs clear Cardiovascular: regular rate/rhythm, normal peripheral pulses Gastrointestinal: normal bowel sounds, soft, non-tender, no organomegaly Back: normal inspection, normal range of motion Extremities: normal inspection, normal capillary refill, normal range of motion, no edema Neurologic/Psych: no motor/sensory deficits, awake, alert, oriented x 3, normal gait, normal mood/affect Skin: intact, normal color, warm/dry Lymphatic: no anterior cervical quinn Core Measures ACS in differential dx? Yes Severe Sepsis Present: No Septic Shock Present: No Progress Differential Diagnosis: AMI, cholecystitis, costochondritis, hyperthyroid, musculoskeletal pain, myocarditis, pancreatitis, pericarditis, pneumonia, pneumothorax, pulmonary embolism Plan of Care: Orders Procedure Date/time Status Add-on Test (ER Only) 02/19 1411 Active Telemetry/Candle Maker 02/19 1155 Active URINALYSIS 02/19 1155 Complete TROPONIN LEVEL 02/19 115 Complete LYME TITRE 02/19 1155 Active D-DIMER 02/19 1155 Complete COMPREHENSIVE METABOLIC PANEL 02/19 1155 Complete CBC WITHOUT DIFFERENTIAL 02/19 1155 Complete B-TYPE NATRIURETIC PEP (BNP) 02/19 115 Complete EKG 02/19 1141 Active Laboratory Tests 02/19/17 1243: Urine Color YEL, Urine Clarity CLEAR, Urine pH 6.0, Ur Specific [place]iken 1.025, Urine Protein TRACE H, Urine Ketones NEG, Urine Nitrite NEG, Urine Bilirubin NEG, Urine Urobilinogen 0.2, Ur Leukocyte Esterase NEG, Ur Microscopic SEDIMENT EXAMINED, Urine RBC RARE, Urine WBC RARE, Urine Bacteria RARE H, Hyaline Casts RARE H, Urine Mucus PACKD H, Urine Hemoglobin NEG, Urine Glucose NEG 02/19/17 1214: Anion Gap 14, Estimated GFR > 60, BUN/Creatinine Ratio 13.8, Glucose 188 H, Calcium 9.6, Total Bilirubin 0.7, AST 30, ALT 44, Alkaline Phosphatase 61, Troponin I < 0.01, Ole-W-Xuwsdbieayi Pept 19.1, Total Protein 7.5, Albumin 4.7, Globulin 2.8, Albumin/Globulin Ratio 1.7, D-Dimer High Sensitivty < 200, CBC w Diff NO MAN DIFF REQ, RBC 4.75, MCV 82.6, MCH 27.6, RDW 14.6 H, MPV 7.7, Gran % 65.6, Lymphocytes % 27.4, Monocytes % 4.8, Eosinophils % 1.8, Basophils % 0.4, Absolute Granulocytes 3.7, Absolute Lymphocytes 1.5, Absolute Monocytes 0.3, Absolute Eosinophils 0.1, Absolute Basophils 0, PUBS MCHC 33.5 02/19/17 1155: Lyme Disease Antibody Pending Diagnostic Imaging: Viewed by Me: Radiology Read. Discussed w/RAD: Radiology Read. CXR Impression: PATIENT: BETSY LANDERS PRESENT AGE: 41 PATIENT ACCOUNT NO: [id number] : 76 LOCATION: [facility] ORDERING PHYSICIAN: DEON MARSH MD SERVICE DATE: 02/19/17-1154 EXAM TYPE: RAD - XRY- PORTABLE CHEST XRAY EXAMINATION: XR PORTABLE CHEST CLINICAL INFORMATION: 41-year -old male patient with chest pain. COMPARISON: Last chest x-ray done 06/04/2012. (Normal). TECHNIQUE: Portable AP semierect view of the chest was obtained. FINDINGS: No significant abnormality is noted involving the heart, lungs, mediastinum, bony thorax or soft tissues. IMPRESSION: No CHF. DICTATED BY: DINA SCRUGGS MD DATE/TIME DICTATED:02/19/171236 ELECTROLESS PLATER: MARCIA DATE/TIME TRANSCRIBED:02/19/171236 CONFIDENTIAL, DO NOT COPY WITHOUT APPROPRIATE AUTHORIZATION. <Electronically signed in Other Vendor System> SIGNED BY: DINA SCRUGGS MD 02/19/17 1241 Initial ED EKG: NSR, no ST T wave changes Prior EKG: unchanged Departure Departure Disposition: HOME OR SELF CARE Condition: Stable Clinical Impression Primary Impression: Chest pain, unspecified Qualifiers: Chest pain type: other chest pain Qualified Code: R07.89 - Other chest pain Referrals: MIKHAIL HARRIS (PCP/Family) ALYSE ROSS,Yokasta SHERMAN Additional Instructions: Follow-up with Dr. Soares. Return if symptoms worsen or for any concerns. Departure Forms: Customer Survey General Discharge Information Critical Care Note Critical Care Note Critical Care Time: non-applicable
[2017-02-19 12:23] LABS: ABSOLUTE BASOPHIL COUNT 0 /CUMM (0.0-0.2); ABSOLUTE EOSINOPHIL COUNT 0.1 /CUMM (0.0-0.7); ABSOLUTE GRANULOCYTE CT 3.7 /CUMM (1.4-6.5); ABSOLUTE LYMPH COUNT 1.5 /CUMM (1.2-3.4); ABSOLUTE MONOCYTE COUNT 0.3 /CUMM (0.10-0.60); BASOPHIL % 0.4 % (0.0-2.0); EOSINOPHIL % 1.8 % (0-5); GRANULOCYTE % 65.6 % (42.2-75.2); HEMATOCRIT 39.2 % (42-52); MEAN CORPUSCULAR HGB 27.6 PG (27.0-31.0); MEAN CORPUSCULAR HGB CONC 33.5 G/DL (33.0-37.0); MEAN CORPUSCULAR VOLUME 82.6 FL (80.0-94.0); MEAN PLATELET VOLUME 7.7 FL (7.4-10.4); PLATELET COUNT 252 /CUMM (130-400); RBC DISTRIBUTION WIDTH 14.6 % (11.5-14.5); RED BLOOD CELL CT 4.75 /CUMM (4.70-6.10); WHITE BLOOD CELL COUNT 5.6 /CUMM (4.8-10.8)
--- NOTE | 2017-02-19 12:41 | RADIOLOGY REPORT ---
EXAMINATION: XR PORTABLE CHEST CLINICAL INFORMATION: 41-year-old male patient with chest pain. COMPARISON: Last chest x-ray done 06/04/2012. (Normal). TECHNIQUE: Portable AP semierect view of the chest was obtained. FINDINGS: No significant abnormality is noted involving the heart, lungs, mediastinum, bony thorax or soft tissues. IMPRESSION: No CHF.
[2017-02-19 13:56] VITALS: BP 127/59
== END 2017-02-19 14:14 ==
LOC: ERH 11:40
PROVIDERS: Emergency Medicine
DX: R07.9 Chest pain, unspecified (principal)
CPT/HCPCS: 86618; 81001; 93005; 93010